=== PATIENT | male | born 1930 | race Caucasian/White ===

== ENCOUNTER 2016-02-17 12:09 | Emergency (ER) | payer MEDICARE ==
[2016-02-17 12:46] LABS: #Basophils 0.1 thou/uL (0.0-0.2); #Eosinphils 0.4 thou/uL (0.0-0.7); #Lymphocytes 1.7 thou/uL (1.20-3.40); #Monocytes 0.8 thou/uL (0.11-0.59); #Neutrophils 6.6 thou/uL (1.40-6.50); %Basophils 0.6 % (0.0-1.0); %Monocytes 8.4 % (0.0-10.0); Hematocrit 37.4 % (42.0-52.0); Mean Platelet Volume 5.6 fL (7.4-10.4); Red Blood Cell (RBC) Count 4.25 mill/uL (4.70-6.10); White Blood Cell (WBC) Count 9.5 thou/uL (4.8-10.8)
[2016-02-17 12:59] LABS: ALT (SGPT) 39 U/L (0-55); AST (SGOT) 82 U/L (5-34); Alkaline Phosphatase 90 U/L (40-150); Anion Gap 11 mmol/L (10-20); BUN (Urea Nitrogen) 31 mg/dL (8.4-25.7); Bilirubin, Total 1.2 mg/dL (0.2-1.2); Calc. Creatinine Clearance 0 mL/min (70-130); Calcium 8.9 mg/dL (7.8-10.44); Carbon Dioxide 24 mmol/L (23-31); Chloride 107 mmol/L (98-107); Estimated GFR-MDRD 36; Globulin 3.1 g/dL (2.4-3.5); Lipase 12 U/L (8-78); Protein, Total 6.9 g/dL (5.8-8.1)
[2016-02-17 13:00] LABS: Troponin I 0.015 ng/mL (< 0.028)
[2016-02-17 13:02] LABS: Bilirubin Negative (Negative); Blood, Urine Negative (Negative); Glucose, Urine (Dipstick) Negative (Negative); Ketone, Urine Negative (Negative); Nitrite Negative (Negative); Protein, Urine (Dipstick) Negative (Neg-Trace); Urobilinogen 0.2 mg/dL (0.2-1.0)
[2016-02-17 13:11] LABS: Bacteria/HPF Rare-Few HPF (None Seen); RBC/HPF None Seen HPF (0-3); Squamous Epithelial 0-3 HPF (0-3); WBC/HPF 0-3 HPF (0-3)
[2016-02-17] MEDS ORDERED: Fentanyl 100 MCG/2 ML VIAL ONE (13:20)
--- NOTE | 2016-02-17 13:25 | RAD ---
PORTABLE CHEST: Date: 02-17-16 An AP portable film at 1236 is compared with a 11-01-14 study. FINDINGS: The heart is mildly enlarged, a little more so that it was in 2015. There are no congestive finding s, large pleural effusions or focal pulmonary infiltrates today. The trachea is midline. IMPRESSION: Mild cardiomegaly. POS: HOME
[2016-02-17] MEDS ORDERED: Ondansetron HCl/PF 4 MG/2 ML Vial ONE (14:07)
--- NOTE | 2016-02-17 14:07 | CT ---
CT ABDOMEN AND PELVIS WITHOUT CONTRAST: Date: 02-17-16 The exam was done without contrast due to his low GFR, high creatinine and history of prior nephrect evelio. Axial slices were acquired and then coronal reconstructions were done. FINDINGS: The lung bases are clear. A moderate sized hiatal hernia is present. The liver, spleen, pancreas, and adrenal glands show no acute findings within the limitations of a noncontrast study. There is d iffuse fatty replacement of the pancreas. The gallbladder is much larger today than it was on a [address], measuring over 8 cm in length. There are calcifications either in it or along its wall. Ultr asound follow up would be helpful. The aorta is calcified but shows no aneurysm. There has been a prior right nephrectomy. The remaining left kidney has several lucencies within it . One is in the upper pole measuring 2.3 cm in size and one is in the middle third measuring 2.6 cm . A peripheral cystic appearing area is seen in the lower pole measuring nearly 2.0 cm in size. Th e latter two findings have increased in size since the prior scan. While these are most likely just cysts, however, given the history of urinary tract cancer, it would be prudent to have the patient get an elective ultrasound of this kidney to be sure these are cystic and not solid findings. He [place] s an extrarenal pelvis in this kidney but there was no sign of ureteral calculi or dilatation. The bowel is nondistended and no inflammatory changes were seen around bowel. There is no sign of f ree air free fluid. Diverticulosis is present without signs of diverticulitis. CT of the pelvis shows no pelvic masses, fluid collections, or inflammatory issues. The wall of the distal rectum is perhaps slightly thicker than usual, but concentrically so. A fat filled left ing uinal hernia was noted. IMPRESSION: 1. Enlargement of the gallbladder with calcifications either within it or along its wall. Follow u p ultrasound recommended. 2. Lucencies of the left kidney, at least two of which have increased in size since 2007. Statisti alvin, most likely cysts, but in view of the clinical history an elective ultrasound to be sure thes e are cystic and not solid is strongly recommended. 3. Hiatal hernia. 4. Diverticulosis without findings of diverticulitis. 5. Fat filled left inguinal hernia. POS: HOME
--- NOTE | 2016-02-17 14:54 | ERRECORD ---
[facility] EMERGENCY RECORD HPI ABDOMINAL PAIN (12:32 DHAM) CHIEF COMPLAINT: Patient presents for evaluation of abdominal pain. HISTORIAN: History provided by patient, "I ate a biscuit and gravy this morning at about 8 o'clock and my stomach has been hurting since then." this was about 4 hours ago. Denies n/v or sob. Was here with similar complaints 2 weeks ago with normal plain films and was given some simethicone. He seemed to resolve until this morning. He thinks that he is constipated but he has been having small BMs once a day. LOCATION MALE: Symptoms are localized, most severe periumbilical. QUALITY: Pain is dull in nature, described as cramping. SEVERITY: Current severity of pain rated as 9/10. TIME COURSE: Sudden onset of symptoms, 4 hours ago. ASSOCIATED WITH: No associated recent antibiotic use, No associated bright red blood per rectum, No associated chills, Associated with constipation, No associated diarrhea, No associated fever, No associated flank pain, No associated genital discharge, No associated groin pain, No associated hematemesis, No associated hematospermia, No associated hematuria, No associated impotence, No associated loss of appetite, No associated melena, No associated nausea, No associated night sweats, No associated painful ejaculation, No associated testicular pain, No associated recent travel, No associated inability to tolerate oral intake, No associated urinary tract infection signs or symptoms, No associated vomiting. RELIEVED BY: Patient's condition relieved by flatus usually helps this pain. He has had similar episodes 3-4 times prior to 2 weeks ago over the last "couple of years" and it usually gets better on it's own. EXACERBATED BY: Patient's condition exacerbated by nothing. RISK FACTORS MALE: Abdominal aortic aneurysm risk factors, include age over 40 years, Coronary artery disease risk factors, include known coronary artery disease, include diabetes, include hypertension. ROS (12:59 DHAM) CONSTITUTIONAL: Historian denies chills, denies fever, denies night sweats. ENT: Historian denies rhinorrhea, denies sore throat. CARDIOVASCULAR: Historian denies chest pain, no radiation, Historian denies dyspnea on exertion, denies edema, denies syncope, denies palpitations. RESPIRATORY: Historian denies cough, denies shortness of breath, denies sputum, denies wheezing. GI: Historian reports abdominal pain, reports constipation, denies diarrhea, denies hematemesis, denies melena, denies nausea, denies vomiting. GENITOURINARY MALE: Historian denies dysuria, denies hematuria, denies impotence, denies urinary frequency, denies urinary retention. MUSCULOSKELETAL: Historian denies arthralgias, denies back pain, &a-1R&a+25V*p+0X*q6356R*c202B*c15G*c2P*p-0X&a-25V&a+1R Name: Trent Vazquez : 1930 M86 MedRec: [id number] AcctNum: [id number] Prepared: Mariel Feb 17, 2016 20:02 by Interface Page 1 of 5 pMD [facility] EMERGENCY RECORD denies deformity, denies fall, denies injury, denies neck pain. SKIN: Historian denies rash, denies skin changes, denies skin lesions. NEUROLOGIC: Historian denies confusion, denies dizziness, denies focal weakness, denies gait changes, denies headache, denies mental status changes, denies paresthesias, denies sensory changes, denies speech changes. HEMO/LYMPHATIC: Historian denies abnormal blood clotting, denies easy bruising. ALLERGIC/IMMUNOLOGIC: Historian denies frequent infections, denies hives. PSYCHIATRIC: Historian denies alcohol abuse. PAST MEDICAL HISTORY MEDICAL HISTORY: Past medical history includes coronary artery disease, Flu vaccine up to date, Pneumococcal vaccine up to date, hypertension, which has been treated/compliant, Atrial fib, HTN, history of malignancy, primary site kidney, bladder CA. (12:21 ASAH) MALE SURGICAL HISTORY: Surgical history of CAD, right nephrectomy d/t cancer(2008); right hand pinky and ring finger amputations. Triple CABG with valve replacement,. (12:21 ASAH) left knee replacement. (12:30 LGIB) PSYCHIATRIC HISTORY: DEPRESSION SINCE PASSING IN 2013. (12:21 ASAH) SOCIAL HISTORY: DENIES ETOH, TOBACCO OR DRUG USE. REVIEWED 02/07/16. (12:21 ASAH) NOTES: I have reviewed the nursing documentation regarding PMHX, social hx, family hx, and surgical history as well as vitals and triage notes and agree. (12:31 DHAM) KNOWN ALLERGIES No Known Drug Allergies CURRENT MEDICATIONS (12:32 LGIB) furosemide: TABLET : Strength - 20 mg : ORAL Patient Dose: 1 tab(s) Oral 2 times a day. atorvastatin: TABLET : Strength - 40 mg : ORAL Patient Dose: 1/2 tab(s) Oral once a day (at bedtime). finasteride: TABLET : Strength - 5 mg : ORAL Patient Dose: 1 tab(s) Oral once a day (in the morning). carvedilol: TABLET : Strength - 6.25 mg : ORAL Patient Dose: 1 tab(s) Oral 2 times a day. glipiZIDE: TABLET, EXTENDED RELEASE 24 HR : Strength - 2.5 mg : ORAL Patient Dose: 1 tab(s) Oral once a day (in the morning). &a-1R&a+25V*p+0X*p4610V*c202B*c15G*c2P*p-0X&a-25V&a+1R Name: Trent Vazquez : 1930 M86 MedRec: [id number] AcctNum: [id number] Prepared: Mariel Feb 17, 2016 20:02 by Interface Page 2 of 5 pMD [facility] EMERGENCY RECORD alfuzosin: TABLET, EXTENDED RELEASE 24 HR : Strength - 10 mg : ORAL Patient Dose: 1 tab(s) Oral once a day (at bedtime). pantoprazole: TABLET, DELAYED RELEASE (ENTERIC COATED) : Strength - 40 mg : ORAL Patient Dose: 1 null Oral once a day (in the morning). amLODIPine: TABLET : Strength - 5 mg : ORAL Patient Dose: 1 tab(s) Oral once a day. VITAL SIGNS VITAL SIGNS: BP: 185/87, Pulse: 59, Resp: 16, Temp: 97.8 (Tympanic), Pain: 9, O2 sat: 98, Time: 02/17/2016 12:16. (12:16 ASAH) BP: 176/95, Pulse: 75, Resp: 17 (Non-Labored), O2 sat: 96 on Room Air, Time: 02/17/2016 13:21. (13:21 LGIB) Pain: 1, Time: 02/17/2016 13:39. (13:39 LGIB) BP: 140/70, Pulse: 86, Resp: 18 (Non-Labored), O2 sat: 98 on Room Air, Time: 02/17/2016 14:01. (14:01 LGIB) PHYSICAL EXAM CONSTITUTIONAL: Vital signs reviewed, Patient afebrile, Pulse mildly bradycardic, Blood pressure normal, Respiratory rate normal, Patient appears non toxic, Patient in mild pain , Patient alert and oriented to person, place and time. (13:00 DHAM) HEAD: Head exam normal, Head exam included findings of head atraumatic. (13:00 DHAM) EYES: Eye exam included findings of eyelids normal to inspection, Pupils equally round and reactive to light, Extraocular muscles intact, Conjunctiva normal. (13:00 DHAM) ENT: Ear exam normal, external ear normal, tympanic membranes normal, no drainage, Nose exam normal, no nasal deformity, no nasal congestion or rhinorrhea, Pharynx exam normal, Uvula exam normal, Tonsil exam normal, teeth normal. (13:00 DHAM) NECK: Neck exam normal, Neck exam included findings of normal range of motion, Thyroid normal, no jugular venous distention, no cervical adenopathy. (13:00 DHAM) RESPIRATORY CHEST: Breath sounds clear, No wheezing, No rales, No rhonchi. (13:00 DHAM) CARDIOVASCULAR: Cardiovascular exam included findings of heart rate regular rate and rhythm, Heart sounds normal, Point of maximal impulse normal. well healed sternotomy scar. (13:00 DHAM) ABDOMEN MALE: Normal rectal exam, no hemorrhoids, no fissure, normal prostate, no occult blood, control positive, rectal tone normal, soft stool in vault, light brown, Abdominal exam included findings of abdomen with mild periumbilical tenderness, Bowel sounds normal, Liver normal, Spleen normal, no distension, no mass or pulsatile masses, no peritoneal signs ie., no guarding, rebound or referred tenderness. (13:00 DHAM) GENITOURINARY MALE: Genitourinary exam included findings of penis &a-1R&a+25V*p+0X*x6290S*c202B*c15G*c2P*p-0X&a-25V&a+1R Name: Trent Vazquez : 1930 M86 MedRec: [id number] AcctNum: [id number] Prepared: TueFeb 17, 2016 20:02 by Interface Page 3 of 5 pMD [facility] EMERGENCY RECORD normal, Testicles normal. (13:03 DHAM) UPPER EXTREMITY: Upper extremity exam included findings of inspection normal, Range of motion normal, Motor strength normal, Sensation intact, Brachial pulse normal, Radial pulse normal, previous amputations of right hand digits 4 and 5 from accident yrs ago. (13:00 DHAM) LOWER EXTREMITY: Lower extremity exam included findings of inspection normal, Range of motion normal, Motor strength normal, Sensation intact, no edema, no calf tenderness, no palpable cords, upper and lower pulses feel symmetrical bilat. (13:00 DHAM) NEURO: Palisade coma scale 15, Neuro exam findings include patient oriented to person, place and time, Speech normal, Gait abnormal, walks bent forward with pain in the abdomen, Memory normal, Cranial nerves intact. (13:00 DHAM) SKIN: Skin exam included findings of skin warm, dry, and normal in color, no rash. (13:00 DHAM) PSYCHIATRIC: Psychiatric exam included findings of patient oriented to person place and time, Normal affect, Judgment normal, Insight normal. (13:00 DHAM) EKG INTERPRETATION (13:46 DHAM) 12 LEAD EKG INTERPRETATION: 12 lead EKG shows, sinus bradycardia, Rate (beats per minute): 55, with no ectopics, Conduction normal, ST segments normal, T waves normal, Tatum normal. MEDICATION ADMINISTRATION SUMMARY Drug Name: ondansetron HCl intravenous, Dose Ordered: 4 mg, Route: IV Push, Status: Given, Time: 14:10 02/17/2016, Drug Name: fentaNYL (PF) injection, Dose Ordered: 25 mcg, Route: IV Push, Status: Given, Time: 13:24 02/17/2016, Drug Name: *Levsin/SL, Dose Ordered: 1 tab(s), Route: Sublingual, Status: Given, Time: 12:54 02/17/2016, *Additional information available in notes, Detailed record available in Medication Service section. DOCTOR NOTES RE-EVALUATION: The patient's condition has improved, Pt feels much better after the Zofran. I suspect standing after the low dose fentanyl may have caused the nausea. I have discussed the lab results and need for further studies discussed with his daughter on the phone by the pt's request. US not available tomorrow. They are here today but with recent food and fentanyl the study will not be very good I suspect. (14:21 DHAM) TEXT: Pt had remarkable improvement with fentanyl 25mcg iv. 45 min later, he was laying on the right side and c/o pain of the right hip which is not unusual and wanted to get up to move around. He became nauseated and was given Zofran IV. His granddaughter Meir was here while I discussed his ct results and needing US of both the &a-1R&a+25V*p+0X*o4765W*c202B*c15G*c2P*p-0X&a-25V&a+1R Name: Trent Vazquez : 1930 M86 MedRec: [id number] AcctNum: [id number] Prepared: TueFeb 17, 2016 20:02 by Interface Page 4 of 5 pMD [facility] EMERGENCY RECORD kidney cysts that have enlarged and the enlarged GB with stones. We did discuss the s/s of cholycystitis and need for recheck for any changes or concerns. (14:07 DHAM) PROBLEM LIST No recorded problems DIAGNOSIS (14:25 DHAM) FINAL: PRIMARY: Cholelithiasis, ADDITIONAL: renal cysts. PRESCRIPTION No recorded prescriptions DISPOSITION PATIENT: Disposition Type: Discharge, Disposition: *Discharge Home. (14:25 DHAM) Patient left the department. (14:48 LGIB) Low: ASA=MEGAN Menjivar, May [facility]=MD Mumtaz, Sanya LGIB=MEGAN Bella, Tonja &a-1R&a+25V*p+0X*y3332R*c202B*c15G*c2P*p-0X&a-25V&a+1R Name: Trent Vazquez : 1930 M86 MedRec: [id number] AcctNum: [id number] Prepared: TueFeb 17, 2016 20:02 by Interface Page 5 of 5 pMD MTDD
--- NOTE | 2016-02-17 14:58 | PICIS ---
[facility] EMERGENCY RECORD TRIAGE (TueFeb 17, 2016 12:18 ASAH) PATIENT: NAME: Trent Vazquez, AGE: 86, GENDER: male, : [id number], TIME OF GREET: TueFeb 17, 2016 12:09, PREFERRED LANGUAGE: Swedish, ETHNICITY: Not or , ECODE BILLING MAP: [facility], SSN: [id number], Zip Code: [address], KG WEIGHT: 83.91, PHONE: , , , PERSON ID: [id number], PAYMENT: [employer], PCP: MD Ernanedz Kyle. (TueFeb 17, 2016 12:18 ASAH) COMPLAINT: abdominal pain/constipation. (TueFeb 17, 2016 12:18 ASAH) ADMISSION: URGENCY: 3 Urgent, ADMISSION SOURCE: Home, TRANSPORT: CAR, BED: ER -02. (TueFeb 17, 2016 12:18 ASAH) PAIN: Patient complains of pain described as, aching, Location abdomin, Pain is constant, No aggravating factors, No relieving factors. (12:21 ASAH) IMMUNIZATIONS: Flu vaccine not up to date, Tetanus not up to date, Pneumococcal vaccine not up to date. (12:21 ASAH) SIRS SCORING: Heart Rate 55-109 (0), Temp range 96.8-101.1 (0), respiratory rate 12-24 (0), Mental status altered: yes (1), Infection or Suspected Infection: No. (12:21 ASAH) TRIAGE SCREENING: Patient denies suicidal ideation, Patient denies presence of domestic violence. (12:21 ASAH) PROVIDERS: TRIAGE NURSE: Dee Menjivar RN. (TueFeb 17, 2016 12:18 ASAH) VITAL SIGNS: BP 185/87, Pulse 59, Resp 16, Temp 97.8, (Tympanic), Pain 9, O2 Sat 98, Time 02/17/2016 12:16. (12:16 ASAH) PREVIOUS VISIT ALLERGIES: No Known Drug Allergies. (TueFeb 17, 2016 12:18 ASAH) No Known Drug Allergies. (12:21 ASAH) KNOWN ALLERGIES No Known Drug Allergies CURRENT MEDICATIONS (12:32 LGIB) furosemide: TABLET : Strength - 20 mg : ORAL Patient Dose: 1 tab(s) Oral 2 times a day. atorvastatin: TABLET : Strength - 40 mg : ORAL Patient Dose: 1/2 tab(s) Oral once a day (at bedtime). finasteride: TABLET : Strength - 5 mg : ORAL Patient Dose: 1 tab(s) Oral once a day (in the morning). carvedilol: TABLET : Strength - 6.25 mg : ORAL Patient Dose: 1 tab(s) Oral 2 times a day. glipiZIDE: TABLET, EXTENDED RELEASE 24 HR : Strength - 2.5 mg : ORAL &a-1R&a+25V*p+0X*t8212E*c202B*c15G*c2P*p-0X&a-25V&a+1R Name: Trent Vazquez : 1930 M86 MedRec: [id number] AcctNum: [id number] Prepared: Mariel Feb 17, 2016 20:02 by Interface Page 1 of 12 pMD [facility] EMERGENCY RECORD Patient Dose: 1 tab(s) Oral once a day (in the morning). alfuzosin: TABLET, EXTENDED RELEASE 24 HR : Strength - 10 mg : ORAL Patient Dose: 1 tab(s) Oral once a day (at bedtime). pantoprazole: TABLET, DELAYED RELEASE (ENTERIC COATED) : Strength - 40 mg : ORAL Patient Dose: 1 null Oral once a day (in the morning). amLODIPine: TABLET : Strength - 5 mg : ORAL Patient Dose: 1 tab(s) Oral once a day. VITAL SIGNS VITAL SIGNS: BP: 185/87, Pulse: 59, Resp: 16, Temp: 97.8 (Tympanic), Pain: 9, O2 sat: 98, Time: 02/17/2016 12:16. (12:16 ASAH) BP: 176/95, Pulse: 75, Resp: 17 (Non-Labored), O2 sat: 96 on Room Air, Time: 02/17/2016 13:21. (13:21 LGIB) Pain: 1, Time: 02/17/2016 13:39. (13:39 LGIB) BP: 140/70, Pulse: 86, Resp: 18 (Non-Labored), O2 sat: 98 on Room Air, Time: 02/17/2016 14:01. (14:01 LGIB) NURSING ASSESSMENT: ABDOMEN (12:25 LGIB) CONSTITUTIONAL: Complex assessment performed, Patient arrives ambulatory, Gait steady, History obtained from patient, Patient appears, restless, Patient cooperative, Patient alert, Oriented to person, place and time, Skin warm, Skin dry, Skin normal in color, Mucous membranes pink, Mucous membranes moist, Patient is well-groomed, Patient complains of abd pain, pt with abd pain since early this morning after eating biscuit and gravy. pt believes he is constipated but states he has been having small BMs once a day. NAD, RR even and unlabored. PAIN: cramping pain, diffusely, Onset of pain 02/17/2016, on a scale 0-10 patient rates pain as 9, Nothing has been tried to alleviate the pain. ABDOMEN: Abdomen assessment findings include abdomen symmetrical, Abdomen soft, non-tender, Bowel sound normal, no associated nausea, no associated vomiting, no associated diarrhea. SAFETY: Side rails up, Cart/Stretcher in lowest position, Call light within reach, Hospital ID band on. NURSING PROCEDURE: BEDSIDE RADIOLOGY (12:42 LGIB) BEDSIDE RADIOLOGY: Portable chest x-ray performed. NURSING PROCEDURE: ENAMEL DIPPER (12:20 LGIB) ENAMEL DIPPER: Patient placed on bus monitor, Patient placed on non-invasive blood pressure monitor, Patient placed on continuous pulse oximetry. NURSING PROCEDURE: DISCHARGE NOTE (14:48 LGIB) DISCHARGE: Patient discharged to home, in a wheelchair, family driving, accompanied by other family member, Summary of Care &a-1R&a+25V*p+0X*b3934Y*c202B*c15G*c2P*p-0X&a-25V&a+1R Name: Trent Vazquez : 1930 M86 MedRec: [id number] AcctNum: [id number] Prepared: Mariel Feb 17, 2016 20:02 by Interface Page 2 of 12 pMD [facility] EMERGENCY RECORD printed/ provided, Patient requested and was provided an electronic copy of Discharge Instructions, Discharge instructions given to patient, Discharge instructions given to grandaughter and daughter, Simple or moderate discharge teaching performed, Prescriptions given and instructions on side effects given, Above person(s) verbalized understanding of discharge instructions and follow-up care, Patient treated and evaluated by physician. BELONGINGS: Belongings and valuables with patient at time of discharge include:, Belongings remain with patient, Valuables remain with patient. NURSING PROCEDURE: EKG CHART (12:34 LGIB) EK lead EKG performed on the left chest, done by MEGAN Uribe. FOLLOW-UP: After procedure, EKG for interpretation given to Dr. Pandya. NURSING PROCEDURE: IV IV SITE 1: IV therapy indicated for medication administration, IV established, to the left antecubital, using a 20 gauge catheter, in one attempt, Saline lock established, Flushed with normal saline (mls): 10, Labs drawn at time of placement, labeled in the presence of the patient and sent to lab, Notes: started by MEGAN Price. (12:35 LGIB) FOLLOW-UP SITE 1: After procedure, no drainage at IV site, After procedure, no swelling at IV site, After procedure, no redness at IV site, IV discontinued, due to patient being discharged, catheter intact. (14:40 LGIB) NURSING PROCEDURE: NURSE NOTES NURSES NOTES: Patient examined by physician. (12:21 LGIB) Patient states decreased pain. (13:35 LGIB) NURSING PROCEDURE: TRANSPORT TO TESTS TRANSPORT TO TESTS: Transport indicated to facilitate diagnosis, Patient transported to CT scan, via cart, Accompanied by x-ray turbine technician. (13:09 LGIB) FOLLOW-UP: After procedure, patient returned to emergency department. (13:17 LGIB) NURSING PROCEDURE: URINE COLLECTION (12:50 LGIB) URINE COLLECTION MALE: Urine collected by void, output amount (mL) 250, urine yellow in color, and clear, Specimen labeled in the presence of the patient and sent to lab. ORDER DETAILS Order Name: ENAMEL DIPPER ED, Status: Done, Time: 12:41 02/17/2016, User: LGIB, - Ordered for: MD Pandya Darren, - Entered by: MD Pandya Darren - Tue Feb 17, 2016 12:31, &a-1R&a+25V*p+0X*c2640M*c202B*c15G*c2P*p-0X&a-25V&a+1R Name: Trent Vazquez: 1930 M86 MedRec: [id number] AcctNum: [id number] Prepared: TueFeb 17, 2016 20:02 by Interface Page 3 of 12 D [facility] EMERGENCY RECORD - Quantity: 1, Order Name: Cardiac Profile w/CKMB & Troponin - I, Status: Active, Time: 12:31 02/17/2016, User: OLVIN, - Ordered for: MD Pandya Darren, - Entered by: MD Pandya Darren - Mariel Feb 17, 2016 12:31, - Quantity: 1, Order Name: CBC with Differential, Status: Active, Time: 12:31 02/17/2016, User: OLVIN, - Ordered for: MD Pandya Darren, - Entered by: MD Pandya Darren - Mariel Feb 17, 2016 12:31, - Quantity: 1, Order Name: Comprehensive Metabolic Panel, Status: Active, Time: 12:31 02/17/2016, User: OLVIN, - Ordered for: MD Pandya Darren, - Entered by: MD Pandya Darren - Mariel Feb 17, 2016 12:31, - Quantity: 1, Order Name: CT Abdomen Pelvis W Con, Status: Active, Time: 12:31 02/17/2016, User: OLVIN, - Ordered for: MD Pandya Darren, - Entered by: MD Pandya Darren - Mariel Feb 17, 2016 12:31, - Quantity: 1, Order Name: EKG 12 Lead in Emergency Room, Status: Active, Time: 12:31 02/17/2016, User: OLVIN, - Ordered for: MD Pandya Darren, - Entered by: MD Pandya Darren - Mariel Feb 17, 2016 12:31, - Quantity: 1, Order Name: ERRT Pulse Oximeter ER, Status: Active, Time: 12:31 02/17/2016, User: OLVIN, - Ordered for: MD Pandya Darren, - Entered by: MD Pandya Darren - Tue Feb 17, 2016 12:31, - Quantity: 1, Order Name: Lipase, Status: Active, Time: 12:31 02/17/2016, User: OLVIN, - Ordered for: MD Pandya Darren, - Entered by: MD Pandya Darren - Tue Feb 17, 2016 12:31, - Quantity: 1, Order Name: Occult Blood, Stool DIAGNOSTIC(Guia), Status: Active, Time: 12:48 02/17/2016, User: OLVIN, - Ordered for: MD Pandya Darren, - Entered by: MD Pandya Darren - Tue Feb 17, 2016 12:48, - Quantity: 1, Order Name: SALINE LOCK, Status: Done, Time: 12:41 02/17/2016, User: JOAQUIN, - Ordered for: MD Pandya Darren, - Entered by: MD Pandya Darren - Tue Feb 17, 2016 12:31, - Quantity: 1, Order Name: Urinalysis with Microscopic, Status: Active, Time: 12:31 02/17/2016, User: OLVIN, - Ordered for: MD Pandya Darren, - Entered by: MD Pandya Darren - Tue Feb 17, 2016 12:31, &a-1R&a+25V*p+0X*m9551C*c202B*c15G*c2P*p-0X&a-25V&a+1R Name: Trent Vazquez : 1930 M86 MedRec: [id number] AcctNum: [id number] Prepared: TueFeb 17, 2016 20:02 by Interface Page 4 of 12 D [facility] EMERGENCY RECORD - Quantity: 1, Order Name: XR Chest 1 View Portable, Status: Active, Time: 12:31 02/17/2016, User: OLVIN, - Ordered for: MD Pandya Darren, - Entered by: MD Pandya Darren - Tue Feb 17, 2016 12:31, - Quantity: 1. MEDICATION ADMINISTRATION SUMMARY Drug Name: ondansetron HCl intravenous, Dose Ordered: 4 mg, Route: IV Push, Status: Given, Time: 14:10 02/17/2016, Drug Name: fentaNYL (PF) injection, Dose Ordered: 25 mcg, Route: IV Push, Status: Given, Time: 13:24 02/17/2016, Drug Name: *Levsin/SL, Dose Ordered: 1 tab(s), Route: Sublingual, Status: Given, Time: 12:54 02/17/2016, *Additional information available in notes, Detailed record available in Medication Service section. MEDICATION SERVICE fentaNYL (PF) injection: Order: fentaNYL (PF) injection (fentanyl citrate/preservative free) - Dose: 25 mcg : IV Push Schedule: Now Ordered by: Sanya Pandya MD Entered by: Sanya Pandya MD TueFeb 17, 2016 13:18 , Acknowledged by: Tonja Bella RN TueFeb 17, 2016 13:19 Documented as given by: Tonja Bella RN TueFeb 17, 2016 13:24 Patient, Medication, Dose, Route and Time verified prior to administration. IV SITE #1 IVP, initial medication, Slowly, Awake and alert- acceptable, Catheter placement confirmed via flush prior to administration, IV site without signs or symptoms of infiltration during medication administration, No swelling during administration, No drainage during administration, IV flushed after administration, Correct patient, time, route, dose and medication confirmed prior to administration, Patient advised of actions and side-effects prior to administration, Allergies confirmed and medications reviewed prior to administration, Patient in position of comfort, Side rails up, Cart in lowest position. : Follow Up : Decreased pain, _IV SITE #1:_. (13:34 LGIB) Levsin/SL: Order: Levsin/SL (hyoscyamine sulfate) - Dose: 1 tab(s) : Sublingual Schedule: Now Notes: 0.125mg now Ordered by: Sanya Pandya MD Entered by: Sanya Pandya MD TueFeb 17, 2016 12:50 , Acknowledged by: Dee Menjivar RN TueFeb 17, 2016 12:52 Documented as given by: Dee Menjivar RN TueFeb 17, 2016 12:54 Patient, Medication, Dose, Route and Time verified prior to &a-1R&a+25V*p+0X*g3435T*c202B*c15G*c2P*p-0X&a-25V&a+1R Name: Trent Vazquez : 1930 M86 MedRec: [id number] AcctNum: [id number] Prepared: TueFeb 17, 2016 20:02 by Interface Page 5 of 12 pMD [facility] EMERGENCY RECORD administration. Amount given: .125mg, Amount wasted: 0, Site: Medication administered S.L., Correct patient, time, route, dose and medication confirmed prior to administration, Patient advised of actions and side-effects prior to administration, Allergies confirmed and medications reviewed prior to administration, Patient in position of comfort, Side rails up, Cart in lowest position. ondansetron HCl intravenous: Order: ondansetron HCl intravenous (ondansetron HCl) - Dose: 4 mg : IV Push Schedule: Now Ordered by: Sanya Pandya MD Entered by: Sanya Pandya MD justice Feb 17, 2016 14:06 , Acknowledged by: Dee Menjivar RN justice Feb 17, 2016 14:10 Documented as given by: Dee Menjivar RN justice Feb 17, 2016 14:10 Patient, Medication, Dose, Route and Time verified prior to administration. Amount given: 4mg, Amount wasted: 4mg, IV SITE #1 IVP, initial medication, Slowly, Catheter placement confirmed via flush prior to administration, IV site without signs or symptoms of infiltration during medication administration, No swelling during administration, No drainage during administration, IV flushed after administration, Correct patient, time, route, dose and medication confirmed prior to administration, Patient advised of actions and side-effects prior to administration, Allergies confirmed and medications reviewed prior to administration, Patient in position of comfort, Side rails up, Cart in lowest position, Family at bedside. HPI ABDOMINAL PAIN (12:32 DHAM) CHIEF COMPLAINT: Patient presents for evaluation of abdominal pain. HISTORIAN: History provided by patient, "I ate a biscuit and gravy this morning at about 8 o'clock and my stomach has been hurting since then." this was about 4 hours ago. Denies n/v or sob. Was here with similar complaints 2 weeks ago with normal plain films and was given some simethicone. He seemed to resolve until this morning. He thinks that he is constipated but he has been having small BMs once a day. LOCATION MALE: Symptoms are localized, most severe periumbilical. QUALITY: Pain is dull in nature, described as cramping. SEVERITY: Current severity of pain rated as 9/10. TIME COURSE: Sudden onset of symptoms, 4 hours ago. ASSOCIATED WITH: No associated recent antibiotic use, No associated bright red blood per rectum, No associated chills, Associated with constipation, No associated diarrhea, No associated fever, No associated flank pain, No associated genital discharge, No associated groin pain, No associated hematemesis, No associated hematospermia, No associated hematuria, No associated impotence, No associated loss of appetite, No associated melena, No associated nausea, No associated night sweats, No associated painful ejaculation, No associated testicular pain, No associated recent &a-1R&a+25V*p+0X*u0018P*c202B*c15G*c2P*p-0X&a-25V&a+1R Name: Trent Vazquez : 1930 M86 MedRec: [id number] AcctNum: [id number] Prepared: Mariel Feb 17, 2016 20:02 by Interface Page 6 of 12 pMD [facility] EMERGENCY RECORD travel, No associated inability to tolerate oral intake, No associated urinary tract infection signs or symptoms, No associated vomiting. RELIEVED BY: Patient's condition relieved by flatus usually helps this pain. He has had similar episodes 3-4 times prior to 2 weeks ago over the last "couple of years" and it usually gets better on it's own. EXACERBATED BY: Patient's condition exacerbated by nothing. RISK FACTORS MALE: Abdominal aortic aneurysm risk factors, include age over 40 years, Coronary artery disease risk factors, include known coronary artery disease, include diabetes, include hypertension. ROS (12:59 DHAM) CONSTITUTIONAL: Historian denies chills, denies fever, denies night sweats. ENT: Historian denies rhinorrhea, denies sore throat. CARDIOVASCULAR: Historian denies chest pain, no radiation, Historian denies dyspnea on exertion, denies edema, denies syncope, denies palpitations. RESPIRATORY: Historian denies cough, denies shortness of breath, denies sputum, denies wheezing. GI: Historian reports abdominal pain, reports constipation, denies diarrhea, denies hematemesis, denies melena, denies nausea, denies vomiting. GENITOURINARY MALE: Historian denies dysuria, denies hematuria, denies impotence, denies urinary frequency, denies urinary retention. MUSCULOSKELETAL: Historian denies arthralgias, denies back pain, denies deformity, denies fall, denies injury, denies neck pain. SKIN: Historian denies rash, denies skin changes, denies skin lesions. NEUROLOGIC: Historian denies confusion, denies dizziness, denies focal weakness, denies gait changes, denies headache, denies mental status changes, denies paresthesias, denies sensory changes, denies speech changes. HEMO/LYMPHATIC: Historian denies abnormal blood clotting, denies easy bruising. ALLERGIC/IMMUNOLOGIC: Historian denies frequent infections, denies hives. PSYCHIATRIC: Historian denies alcohol abuse. PAST MEDICAL HISTORY MEDICAL HISTORY: Past medical history includes coronary artery disease, Flu vaccine up to date, Pneumococcal vaccine up to date, hypertension, which has been treated/compliant, Atrial fib, HTN, history of malignancy, primary site kidney, bladder CA. 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 Triple CABG with valve replacement,. (12:21 ASA) left knee replacement. (12:30 LGIB) &a-1R&a+25V*p+0X*t1712S*c202B*c15G*c2P*p-0X&a-25V&a+1R Name: Trent Vazquez : 1930 M86 MedRec: [id number] AcctNum: [id number] Prepared: Mariel Feb 17, 2016 20:02 by Interface Page 7 of 12 D [facility] EMERGENCY RECORD PSYCHIATRIC HISTORY: DEPRESSION SINCE PASSING IN 2013. (12:21 ASA) SOCIAL HISTORY: DENIES ETOH, TOBACCO OR DRUG USE. REVIEWED 02/07/16. (12:21 ASA) NOTES: I have reviewed the nursing documentation regarding PMHX, social hx, family hx, and surgical history as well as vitals and triage notes and agree. (12:31 DHAM) PHYSICAL EXAM CONSTITUTIONAL: Vital signs reviewed, Patient afebrile, Pulse mildly bradycardic, Blood pressure normal, Respiratory rate normal, Patient appears non toxic, Patient in mild pain , Patient alert and oriented to person, place and time. (13:00 DHAM) HEAD: Head exam normal, Head exam included findings of head atraumatic. (13:00 DHAM) EYES: Eye exam included findings of eyelids normal to inspection, Pupils equally round and reactive to light, Extraocular muscles intact, Conjunctiva normal. (13:00 DHAM) ENT: Ear exam normal, external ear normal, tympanic membranes normal, no drainage, Nose exam normal, no nasal deformity, no nasal congestion or rhinorrhea, Pharynx exam normal, Uvula exam normal, Tonsil exam normal, teeth normal. (13:00 DHAM) NECK: Neck exam normal, Neck exam included findings of normal range of motion, Thyroid normal, no jugular venous distention, no cervical adenopathy. (13:00 DHAM) RESPIRATORY CHEST: Breath sounds clear, No wheezing, No rales, No rhonchi. (13:00 DHAM) CARDIOVASCULAR: Cardiovascular exam included findings of heart rate regular rate and rhythm, Heart sounds normal, Point of maximal impulse normal. well healed sternotomy scar. (13:00 DHAM) ABDOMEN MALE: Normal rectal exam, no hemorrhoids, no fissure, normal prostate, no occult blood, control positive, rectal tone normal, soft stool in vault, light brown, Abdominal exam included findings of abdomen with mild periumbilical tenderness, Bowel sounds normal, Liver normal, Spleen normal, no distension, no mass or pulsatile masses, no peritoneal signs ie., no guarding, rebound or referred tenderness. (13:00 DHAM) GENITOURINARY MALE: Genitourinary exam included findings of penis normal, Testicles normal. (13:03 DHAM) UPPER EXTREMITY: Upper extremity exam included findings of inspection normal, Range of motion normal, Motor strength normal, Sensation intact, Brachial pulse normal, Radial pulse normal, previous amputations of right hand digits 4 and 5 from accident yrs ago. (13:00 DHAM) LOWER EXTREMITY: Lower extremity exam included findings of inspection normal, Range of motion normal, Motor strength normal, Sensation intact, no edema, no calf tenderness, no palpable cords, upper and lower pulses feel symmetrical bilat. (13:00 DHAM) NEURO: Tina coma scale 15, Neuro exam findings include patient &a-1R&a+25V*p+0X*z6163N*c202B*c15G*c2P*p-0X&a-25V&a+1R Name: Trent Vazquez : 1930 M86 MedRec: [id number] AcctNum: [id number] Prepared: TueFeb 17, 2016 20:02 by Interface Page 8 of 12 pMD [facility] EMERGENCY RECORD oriented to person, place and time, Speech normal, Gait abnormal, walks bent forward with pain in the abdomen, Memory normal, Cranial nerves intact. (13:00 DHAM) SKIN: Skin exam included findings of skin warm, dry, and normal in color, no rash. (13:00 DHAM) PSYCHIATRIC: Psychiatric exam included findings of patient oriented to person place and time, Normal affect, Judgment normal, Insight normal. (13:00 DHAM) EVENTS TRANSFER: Triage to Emergency Emergency Room -02. (TueFeb 17, 2016 12:18 ASAH) Removed from Emergency Emergency Room -02. (14:48 LGIB) EKG INTERPRETATION (13:46 DHAM) 12 LEAD EKG INTERPRETATION: 12 lead EKG shows, sinus bradycardia, Rate (beats per minute): 55, with no ectopics, Conduction normal, ST segments normal, T waves normal, [place] normal. O2SAT INTERPRETATION (13:10 DHAM) O2SAT: Single pulse oximetry, Oxygen saturation 98%, on room air, Oxygen saturation interpretation: Normal, No intervention required. DOCTOR NOTES RE-EVALUATION: The patient's condition has improved, Pt feels much better after the Zofran. I suspect standing after the low dose fentanyl may have caused the nausea. I have discussed the lab results and need for further studies discussed with his daughter on the phone by the pt's request. US not available tomorrow. They are here today but with recent food and fentanyl the study will not be very good I suspect. (14:21 DHAM) TEXT: Pt had remarkable improvement with fentanyl 25mcg iv. 45 min later, he was laying on the right side and c/o pain of the right hip which is not unusual and wanted to get up to move around. He became nauseated and was given Zofran IV. His granddaughter Meir was here while I discussed his ct results and needing US of both the kidney cysts that have enlarged and the enlarged GB with stones. We did discuss the s/s of cholycystitis and need for recheck for any changes or concerns. (14:07 DHAM) PROBLEM LIST No recorded problems DIAGNOSIS (14:25 DHAM) FINAL: PRIMARY: Cholelithiasis, ADDITIONAL: renal cysts. DISPOSITION PATIENT: Disposition Type: Discharge, Disposition: *Discharge &a-1R&a+25V*p+0X*x9141Q*c202B*c15G*c2P*p-0X&a-25V&a+1R Name: Trent Vazquez : 1930 M86 MedRec: [id number] AcctNum: [id number] Prepared: TueFeb 17, 2016 20:02 by Interface Page 9 of 12 pMD [facility] EMERGENCY RECORD Home. (14:25 DHAM) Patient left the department. (14:48 LGIB) INSTRUCTION (14:27 DHAM) DISCHARGE: CHOLELITHIASIS WITH COLIC PRESUMED. FOLLOWUP: [facility] [address] [place] [address], . SPECIAL: Keep foods very low in fat See Dr. Ernandez to arrange ultrasound of the gallbladder and kidney cysts. Return for fever, increased pain, nausea/vomiting or any other concerns. PRESCRIPTION No recorded prescriptions IMAGING *DISCHARGE INSTRUCTIONS RECEIPT: Image captured from scanner. (14:49 LGIB) *SUPPLY CHARGE SHEET: Image captured from scanner. (14:49 LGIB) *EKG: Image captured from scanner. (14:51 LGIB) ADMIN (19:59 DHAM) DIGITAL SIGNATURE: MD Mumtaz, Sanya. RESULTS MICROBIOLOGY: Occult Blood, Stool DIAGNOSTIC: [id number] Collection DT: TueFeb 17, 2016 12:55, See comment below , @ ER ROOM#: ER-02 Source: Stool Spec Desc: PENDING, Fecal Occult Bld - Guaiac Negative for occult , blood . (12:58 DHAM) LABORATORY: CBC with Differential Collection DT: TueFeb 17, 2016 12:42, White Blood Cell (WBC) Count 9.5 thou/uL, Range (4.8-10.8), *Red Blood Cell (RBC) Count 4.25 - L mill/uL, Range (4.70-6.10), *Hemoglobin 12.0 - L g/dL, Range (14.0-18.0), *Hematocrit 37.4 - L %, Range (42.0-52.0), Mean Corpuscular Volume 88.0 fl, Range (80.0-94.0), Mean Corpuscular Hemoglobin 28.1 pg, Range (27.0-31.0), Mean Corpuscular HGB CONC 32.0 g/dL, Range (32.0-36.0), RBC Distribution Width 12.5 %, Range (11.5-14.5), Platelet Count 195 thou/uL, Range (130-400), *Mean Platelet Volume 5.6 - L fL, Range (7.4-10.4), %Neutrophils 68.9 %, Range (42.0-75.0), *%Lymphocytes 18.1 - L %, Range (21.0-51.0), %Monocytes 8.4 %, Range (0.0-10.0), %Eosinophils 4.0 %, Range (0.0-10.0), &a-1R&a+25V*p+0X*e4189S*c202B*c15G*c2P*p-0X&a-25V&a+1R Name: Trent Vazquez : 1930 M86 MedRec: [id number] AcctNum: [id number] Prepared: TueFeb 17, 2016 20:02 by Interface Page 10 of 12 pMD [facility] EMERGENCY RECORD %Basophils 0.6 %, Range (0.0-1.0), *#Neutrophils 6.6 - H thou/uL, Range (1.40-6.50), #Lymphocytes 1.7 thou/uL, Range (1.20-3.40), *#Monocytes 0.8 - H thou/uL, Range (0.11-0.59), #Eosinphils 0.4 thou/uL, Range (0.0-0.7), #Basophils 0.1 thou/uL, Range (0.0-0.2). (12:58 [facility]) Cardiac Profile w/CKMB & TropI Collection DT: TueFeb 17, 2016 12:42, CKMB 1.1 ng/mL, Range (0-6.6), Troponin I 0.015 ng/mL, Range (< 0.028), Reference Range , 0.00 - 0.028 ng/mL Negative 0.029 - 0.29 ng/mL , Indeterminate Greater or Equal to 0.3 ng/mL Strongly suggests [place] , . (13:11 [facility]) Lipase Collection DT: TueFeb 17, 2016 12:42, Lipase 12 U/L, Range (8-78). (13:11 [facility]) Comprehensive Metabolic Panel Collection DT: TueFeb 17, 2016 12:42, Sodium 138 mmol/L, Range (136-145), Potassium 4.4 mmol/L, Range (3.5-5.1), Chloride 107 mmol/L, Range (98-107), Carbon Dioxide 24 mmol/L, Range (23-31), Anion Gap 11 mmol/L, Range (10-20), *BUN (Urea Nitrogen) 31 - H mg/dL, Range (8.4-25.7), *Creatinine 1.80 - H mg/dL, Range (0.7-1.3), Estimated GFR-MDRD 36 , Reference Range for Estimated GFR: Greater than 90, mL/min/1.73 m2 NOTE: The MDRD equation has not been validated for use, with the elderly (over 70 years of age), women, patients with, serious comorbid condition or persons with extremes of body size, muscle, mass, or nutritional status. , *Glucose 152 - H mg/dL, Range (83-110), Calcium 8.9 mg/dL, Range (7.8-10.44), Bilirubin, Total 1.2 mg/dL, Range (0.2-1.2), Protein, Total 6.9 g/dL, Range (5.8-8.1), NOTE: Plasma values are generally 0.3 to 0.5 g/dL higher than serum values, due to the presence of fibrinogen. , Albumin 3.8 g/dL, Range (3.4-4.8), Globulin 3.1 g/dL, Range (2.4-3.5), Alb/Glob Ratio 1.2 g/dL, Range (1.2-2.2), Alkaline Phosphatase 90 U/L, Range (40-150), *AST (SGOT) 82 - H U/L, Range (5-34), ALT (SGPT) 39 U/L, Range (0-55). (13:11 [facility]) Urinalysis with Microscopic Collection DT: TueFeb 17, 2016 13:11, Color Yellow , Range (Yellow), Clarity Clear , Range (Clear), Specific [place], Urine 1.015 , Range (1.005-1.030), pH, Urine 6.0 , Range (5.0-9.0), &a-1R&a+25V*p+0X*q5739A*c202B*c15G*c2P*p-0X&a-25V&a+1R Name: Trent Vazquez : 1930 M86 MedRec: [id number] AcctNum: [id number] Prepared: TueFeb 17, 2016 20:02 by Interface Page 11 of 12 pMD [facility] EMERGENCY RECORD Leukocyte Negative , Range (Negative), Nitrite Negative , Range (Negative), Protein, Urine (Dipstick) Negative mg/dL, Range (Neg-Trace), Glucose, Urine (Dipstick) Negative mg/dL, Range (Negative), Ketone, Urine Negative mg/dL, Range (Negative), Urobilinogen 0.2 mg/dL, Range (0.2-1.0), Bilirubin Negative , Range (Negative), Blood, Urine Negative , Range (Negative), RBC/HPF None Seen HPF, Range (0-3), WBC/HPF 0-3 HPF, Range (0-3), Squamous Epithelial 0-3 HPF, Range (0-3), Bacteria/HPF Rare-Few HPF, Range (None Seen). (13:28 [facility]) Low: ASARaghu=MEGAN Menjivar, May [facility]=MD Mumtaz, Sanya LGIB=MEGAN Bella, Tonja &a-1R&a+25V*p+0X*i2228H*c202B*c15G*c2P*p-0X&a-25V&a+1R Name: Trent Vazquez DOB: 1930 M86 MedRec: [id number] AcctNum: [id number] Prepared: Mariel Feb 17, 2016 20:02 by Interface Page 12 of 12 pMD MTDD
== END 2016-02-17 14:45 | disposition home or self-care (01) ==
LOC: BURERS 12:09
DX: K80.20 Calculus of gallbladder without cholecystitis without obstruction (principal); N28.1 Cyst of kidney, acquired; I25.10 Atherosclerotic heart disease of native coronary artery without angina pectoris; I10 Essential (primary) hypertension; I48.91 Unspecified atrial fibrillation; Z89.021 Acquired absence of right finger(s); Z95.1 Presence of aortocoronary bypass graft
CPT/HCPCS: 71010; 74177; 80053; 81001; 82272; 82553; 83690; 84484; 85025; 93005; 94760; 96374; 96375; J2405; J3010

== ENCOUNTER 2016-02-20 08:49 | Outpatient (CLI) | payer MEDICARE ==
--- NOTE | 2016-02-20 12:35 | ULT ---
RIGHT UPPER QUADRANT ULTRASOUND: DATE: 02/20/16. FINDINGS: Ultrasonography of the right upper quadrant was performed for evaluation of an enlarged gallbladder on the recent CT scan. The patient's gallbladder has a thick wall, measuring just over 4 mm in thickness. Internally, ther e is a large nonshadowing echogenic density, basically soft tissue density, that does move some with positioning. The most likely etiology is a large sludge ball. Less likely is a large poorly calci fied stone or mass. In addition, the patient's common bile duct is prominently dilated measuring ju st over 9 mm in width. This all suggests active pathology in this location. The pancreas is not se en optimally, but the pieces that are seemed unremarkable. The liver size was normal. No dilated i ntrahepatic ducts were present. The right kidney has been surgically removed. IMPRESSION: A 3.6 cm soft tissue density inside a thick-walled gallbladder that is most likely a large sludge ba ll, but see other considerations above. The thick wall of the gallbladder suggests cholecystitis. It should also be noted that the common bile duct is enlarged (9 mm). CODE T POS: HOME
--- NOTE | 2016-02-20 12:38 | ULT ---
BILATERAL RENAL ULTRASOUND: DATE: 02/20/16. FINDINGS: Ultrasonography of the urinary tract was performed. A recent CT scan showed some cysts in the left kidney and other low-density areas that where needed to confirm whether they were cystic or solid, p articularly in view of his prior diagnosis and prior right nephrectomy. The right kidney has been surgically removed. The left kidney measures 10.2 x 4.7 x 4.9 cm. It ind eed has 2 cysts within it. One measures 2.5 x 2.2 x 2.3 cm. The other measures 1.9 x 2.3 x 2.1 cm. No solid masses were appreciated in the kidney. There is no hydronephrosis. Cortex around the le ft kidney seemed normal for the patient's age and the echogenicity was normal. No views of the urin oswaldo bladder were provided. IMPRESSION: Two left renal cysts. No solid masses detected. CODE T POS: HOME
== END 2016-02-20 08:50 | disposition home or self-care (01) ==
LOC: BURULT 08:49
PROVIDERS: ATTEND Family Medicine
DX: N28.1 Cyst of kidney, acquired (principal); K82.8 Other specified diseases of gallbladder; K83.8 Other specified diseases of biliary tract
CPT/HCPCS: 76705; 76770

== ENCOUNTER 2016-03-05 15:28 | Emergency (ER) | payer MEDICARE ==
[2016-03-05 16:02] LABS: #Basophils 0.1 thou/uL (0.0-0.2); #Eosinphils 0.2 thou/uL (0.0-0.7); #Lymphocytes 1.3 thou/uL (1.20-3.40); #Monocytes 1.1 thou/uL (0.11-0.59); #Neutrophils 13.6 thou/uL (1.40-6.50); %Basophils 0.3 % (0.0-1.0); %Monocytes 6.9 % (0.0-10.0); Hematocrit 33.2 % (42.0-52.0); Mean Platelet Volume 5.9 fL (7.4-10.4); Red Blood Cell (RBC) Count 3.76 mill/uL (4.70-6.10); White Blood Cell (WBC) Count 16.3 thou/uL (4.8-10.8)
[2016-03-05 16:13] LABS: ALT (SGPT) 45 U/L (0-55); AST (SGOT) 49 U/L (5-34); Alkaline Phosphatase 96 U/L (40-150); Anion Gap 13 mmol/L (10-20); Bilirubin, Total 1.1 mg/dL (0.2-1.2); Calc. Creatinine Clearance 0 mL/min (70-130); Calcium 8.7 mg/dL (7.8-10.44); Carbon Dioxide 22 mmol/L (23-31); Chloride 103 mmol/L (98-107); Estimated GFR-MDRD 32; Globulin 3.4 g/dL (2.4-3.5); Protein, Total 6.8 g/dL (5.8-8.1)
[2016-03-05 16:15] LABS: Troponin I Less than 0.010 ng/mL (< 0.028)
--- NOTE | 2016-03-05 16:40 | ERRECORD ---
HEALTH SYSTEM EMERGENCY RECORD HPI WEAK-DIZZY (16:00 [facility]) CHIEF COMPLAINT: Patient presents for evaluation of weakness. HISTORIAN: History provided by patient, 86M presents to the ED with reports of generalized weakness. States that yesterday he had a cholecystectomy at [facility], and today he has felt tired and weak. Denies focal weakness, denies pain, just states generalized malaise. LOCATION: Symptoms are generalized. QUALITY: Patient is alert and oriented to person, place and time, [place] coma score is 15. TIME COURSE: Patient unable to describe onset of symptoms, There has been no change in the patient's symptoms over time. ASSOCIATED WITH: No associated chest pain, No associated fever, No associated gait disturbance, No associated visual changes. EXACERBATED BY: Patient's condition exacerbated by exercise. RELIEVED BY: Patient's condition not relieved by lying flat. ROS (16:02 [facility]) CONSTITUTIONAL: Historian denies chills, reports fatigue, denies fever, reports lethargy, reports malaise, denies night sweats, reports weakness, denies weight loss. EYES: Negative eye review of systems, Historian denies eye pain, denies eye discharge, denies vision changes. ENT: Negative ears, nose, throat review of systems, Historian denies rhinorrhea, denies sore throat. CARDIOVASCULAR: Negative cardiovascular review of systems, Historian denies chest pain, denies palpitations. RESPIRATORY: Negative respiratory review of systems, Historian denies cough, denies shortness of breath. GI: Negative gastrointestinal review of systems, Historian denies abdominal pain, denies constipation, denies diarrhea, denies nausea, denies vomiting. GENITOURINARY MALE: Negative genitourinary review of systems, Historian denies dysuria, denies hematuria. MUSCULOSKELETAL: Negative musculoskeletal review of systems, Historian denies back pain, denies fall, denies injury, denies neck pain. SKIN: Negative skin review of systems, Historian denies rash, denies skin changes. NEUROLOGIC: Negative neurologic review of systems, Historian denies headache. HEMO/LYMPHATIC: Normal hematologic/lymphatic system review, Historian denies abnormal blood clotting. PAST MEDICAL HISTORY (15:33 [facility]) MEDICAL HISTORY: Past medical history includes coronary artery disease, Flu vaccine up to date, Pneumococcal vaccine up to date, hypertension, which has been treated/compliant, Atrial fib, HTN, history of malignancy, primary site kidney, bladder CA. 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 Triple CABG with valve replacement,. left knee replacement. PSYCHIATRIC HISTORY: DEPRESSION SINCE PASSING IN 2013. SOCIAL HISTORY: DENIES ETOH, TOBACCO OR DRUG USE. REVIEWED 02/07/16. KNOWN ALLERGIES No Known Drug Allergies CURRENT MEDICATIONS (15:32 [facility]) furosemide: TABLET : Strength - 20 mg : ORAL Patient Dose: 1 tab(s) Oral 2 times a day. atorvastatin: TABLET : Strength - 40 mg : ORAL Patient Dose: 1/2 tab(s) Oral once a day (at bedtime). finasteride: TABLET : Strength - 5 mg : ORAL Patient Dose: 1 tab(s) Oral once a day (in the morning). carvedilol: TABLET : Strength - 6.25 mg : ORAL Patient Dose: 1 tab(s) Oral 2 times a day. glipiZIDE: TABLET, EXTENDED RELEASE 24 HR : Strength - 2.5 mg : ORAL Patient Dose: 1 tab(s) Oral once a day (in the morning). alfuzosin: TABLET, EXTENDED RELEASE 24 HR : Strength - 10 mg : ORAL Patient Dose: 1 tab(s) Oral once a day (at bedtime). pantoprazole: TABLET, DELAYED RELEASE (ENTERIC COATED) : Strength - 40 mg : ORAL Patient Dose: 1 null Oral once a day (in the morning). amLODIPine: TABLET : Strength - 5 mg : ORAL Patient Dose: 1 tab(s) Oral once a day. VITAL SIGNS VITAL SIGNS: BP: 144/69, Pulse: 77, Resp: 18, Temp: 98.2 (Oral), Pain: 0, O2 sat: 95 on Room Air, Time: 03/05/2016 15:32. (15:32 [facility]) BP: 122/60, Pulse: 71, Resp: 25, Pain: 0, O2 sat: 94 on Room Air, Time: 03/05/2016 16:00. (16:00 [facility]) BP: 127/61, Pulse: 71, Resp: 20, Pain: 0, O2 sat: 95 on Room Air, Time: 03/05/2016 16:25. (16:25 [facility]) PHYSICAL EXAM (16:02 [facility]) CONSTITUTIONAL: Vital signs reviewed, Patient afebrile, Pulse normal, Blood pressure normal, Respiratory rate normal, Patient appears non toxic, Patient appears pain free, Patient alert and &a-1R&a+25V*p+0X*q8434T*c202B*c15G*c2P*p-0X&a-25V&a+1R Name: Trent Vazquez : 1930 M86 MedRec: [id number] AcctNum: [id number] Prepared: TueMar 05, 2016 17:11 by Interface Page 2 of 4 [facility]MD [facility] EMERGENCY RECORD oriented to person, place and time. HEAD: Head exam normal, Head exam included findings of head atraumatic, normocephalic. EYES: Eye exam normal, Eye exam included findings of eyelids normal to inspection, Pupils equally round and reactive to light, Extraocular muscles intact, no nystagmus. ENT: ENT exam normal, Ear exam normal, external ear normal, tympanic membranes normal, no bleeding, Pharynx exam normal, Uvula exam normal, Tonsil exam normal, Mouth exam normal, mucous membranes moist, teeth normal. NECK: Neck exam normal, Neck exam included findings of normal range of motion, Trachea midline, no meningeal signs, no cervical adenopathy, no tenderness. RESPIRATORY CHEST: Respiratory and chest exam normal, Respiratory exam included findings of no respiratory distress, Breath sounds clear. CARDIOVASCULAR: Cardiovascular assessment normal, Cardiovascular exam included findings of heart rate regular rate and rhythm, Heart sounds normal. ABDOMEN MALE: Abdominal exam included findings of abdomen nontender, Bowel sounds normal, no distension, no mass, no pulsatile masses, no peritoneal signs, no rigidity, no guarding, no rebound, Rovsing's sign absent. BACK: Back exam normal, Back exam included findings of normal inspection, range of motion normal, no tenderness. UPPER EXTREMITY: Upper extremity exam normal, Upper extremity exam included findings of inspection normal, Range of motion normal, Motor strength normal, Sensation intact, Radial pulse normal. LOWER EXTREMITY: Lower extremity exam normal, Lower extremity exam included findings of inspection normal, Range of motion normal, Motor strength normal, Sensation intact, Posterior tibial pulse normal, Pedal pulse normal. NEURO: Neuro exam normal, Neuro exam findings include patient oriented to person, place and time, Speech normal, Gait normal. SKIN: Skin exam normal, Skin exam included findings of skin warm, dry, and normal in color, no rash. PSYCHIATRIC: Psychiatric exam normal, Normal affect. EKG INTERPRETATION (16:05 [facility]) 12 LEAD EKG INTERPRETATION: 12 lead EKG interpreted by Emergency Department Physician at time of study, Interpretation: normal EKG. DOCTOR NOTES (16:32 [facility]) TEXT: Patient presented with generalized fatigue and weakness. Workup has been reassuring, and his physical exam is unremarkable as well. I believe his symptoms are likely secondary to regular post operative changes, as well as possibly related to the tramadol as well. Will change analgesics, and encourage follow up with PMD. PATIENT STATUS: Patient has improved since arrival to emergency &a-1R&a+25V*p+0X*f0280U*c202B*c15G*c2P*p-0X&a-25V&a+1R Name: Trent Vazquez : 1930 M86 MedRec: [id number] AcctNum: [id number] Prepared: TueMar 05, 2016 17:11 by Interface Page 3 of 4 [facility] EMERG[facility]Y [facility]ORD department. PATIENT PLAN: The patient will be discharged, The patient will follow up with primary care physician. PROBLEM LIST No recorded problems DIAGNOSIS (16:30 [facility]) FINAL: PRIMARY: Fatigue. PRESCRIPTION (16:30 [facility]) acetaminophen-codeine: TABLET : 300 mg-30 mg : ORAL : Quantity: 1 Unit: tab(s) Route: ORAL Schedule: every 6 hours PRN Dispense: 16 May substitute. Refills: No Refills . NOTES: No refills. DISPOSITION PATIENT: Disposition Type: Discharge, Disposition: *Discharge Home. (16:30 [facility]) Patient left the department. (17:08 [facility]) Low: ARCENIO=CHLOÉ Henderson, May [facility]=MD Aleksandra, Connor OR=MEGAN Thibodeaux, Scarlett &a-1R&a+25V*p+0X*m0944T*c202B*c15G*c2P*p-0X&a-25V&a+1R Name: Trent Vazquez : 1930 M86 MedRec: [id number] AcctNum: [id number] Prepared: TueMar 05, 2016 17:11 by Interface Page 4 of 4 pMD [facility]TDD
--- NOTE | 2016-03-05 16:46 | PICIS ---
[facility] EMERGENCY RECORD TRIAGE (TueMar 05, 2016 15:31 KMOR) TRIAGE NOTES: Weakness sp brock 1 day ago. Taking tramadol for pain. (TueMar 05, 2016 15:31 KMOR) PATIENT: NAME: Trent Vazquez, AGE: 86, GENDER: male, : [id number], TIME OF GREET: TueMar 05, 2016 15:29, PREFERRED LANGUAGE: Beninese, ETHNICITY: Not or , ECODE BILLING MAP: [facility], SSN: [id number], Zip Code: [address], KG WEIGHT: 83.91, PHONE: , , , PERSON ID: [id number], PAYMENT: [employer], PCP: MD Ernandez Kyle. (TueMar 05, 2016 15:31 KMOR) COMPLAINT: weakness. (TueMar 05, 2016 15:31 KMOR) ADMISSION: URGENCY: 3 Urgent, ADMISSION SOURCE: Home, TRANSPORT: CAR, BED: ER -04. (TueMar 05, 2016 15:31 KMOR) ASSESSMENT: Assessment: A&OX4. RR EVEN AND UNLABROED., Symptoms began 9 hours ago. (15:33 KMOR) PAIN: No complaint of pain. (15:33 KMOR) IMMUNIZATIONS: Flu vaccine up to date, Pneumococcal vaccine up to date. (15:33 KMOR) SIRS SCORING: Heart Rate 55-109 (0), Temp range 96.8-101.1 (0), respiratory rate 12-24 (0), Mental Status altered: no (0), Infection or Suspected Infection: No. (15:33 KMOR) TRIAGE SCREENING: Patient denies suicidal ideation, Patient denies presence of domestic violence. (15:33 KMOR) PROVIDERS: TRIAGE NURSE: Scarlett Thibodeaux RN. (TueMar 05, 2016 15:31 KMOR) VITAL SIGNS: BP 144/69, Pulse 77, Resp 18, Temp 98.2, (Oral), Pain 0, O2 Sat 95, on Room Air, Time 03/05/2016 15:32. (15:32 KMOR) PREVIOUS VISIT ALLERGIES: No Known Drug Allergies. (TueMar 05, 2016 15:31 KMOR) No Known Drug Allergies. (15:33 KMOR) KNOWN ALLERGIES No Known Drug Allergies CURRENT MEDICATIONS (15:32 KMOR) furosemide: TABLET : Strength - 20 mg : ORAL Patient Dose: 1 tab(s) Oral 2 times a day. atorvastatin: TABLET : Strength - 40 mg : ORAL Patient Dose: 1/2 tab(s) Oral once a day (at bedtime). finasteride: TABLET : Strength - 5 mg : ORAL Patient Dose: 1 tab(s) Oral once a day (in the morning). carvedilol: TABLET : Strength - 6.25 mg : ORAL Patient Dose: 1 tab(s) Oral 2 times a day. glipiZIDE: TABLET, EXTENDED RELEASE 24 HR : Strength - 2.5 mg : ORAL Patient Dose: 1 tab(s) Oral once a day (in the morning). &a-1R&a+25V*p+0X*t6924M*c202B*c15G*c2P*p-0X&a-25V&a+1R Name: Trent Vazquez : 1930 M86 MedRec: [id number] AcctNum: [id number] Prepared: TueMar 05, 2016 17:17 by Interface Page 1 of 8 pMD [facility] EMERGENCY RECORD alfuzosin: TABLET, EXTENDED RELEASE 24 HR : Strength - 10 mg : ORAL Patient Dose: 1 tab(s) Oral once a day (at bedtime). pantoprazole: TABLET, DELAYED RELEASE (ENTERIC COATED) : Strength - 40 mg : ORAL Patient Dose: 1 null Oral once a day (in the morning). amLODIPine: TABLET : Strength - 5 mg : ORAL Patient Dose: 1 tab(s) Oral once a day. VITAL SIGNS VITAL SIGNS: BP: 144/69, Pulse: 77, Resp: 18, Temp: 98.2 (Oral), Pain: 0, O2 sat: 95 on Room Air, Time: 03/05/2016 15:32. (15:32 KMOR) BP: 122/60, Pulse: 71, Resp: 25, Pain: 0, O2 sat: 94 on Room Air, Time: 03/05/2016 16:00. (16:00 KMOR) BP: 127/61, Pulse: 71, Resp: 20, Pain: 0, O2 sat: 95 on Room Air, Time: 03/05/2016 16:25. (16:25 KMOR) NURSING ASSESSMENT: CVA ASSESSMENT TOOL (15:58 KMOR) NIHSS: CVA assessment findings: Level of consciousness: alert, keenly responsive (0), Questions: answers both questions correctly (0), Commands: performs both tasks correctly (0), Best gaze: normal (0), Visual: no visual loss (0), Facial palsy: normal symmetrical movement (0), Motor Left Arm: no drift, arm stays 90/45 degrees for full 10 seconds (0), Motor Right Arm: drift, arm drifts down but does not hit bed or other support (1), Motor left leg: drift, leg drifts down but does not hit bed or other support (1), Motor right leg: no drift, leg stays at 30 degrees for full five seconds (0), Limb ataxia absent (0), Sensory: normal, no sensory loss (0), Best language: no aphasia; normal (0), Dysarthria: normal (0), Extinction and Inattention: normal (0), Total score 2. NURSING ASSESSMENT: HEAD-TO-TOE (15:50 KMOR) CONSTITUTIONAL: Patient arrives, via hospital wheelchair, Gait steady, History obtained from patient, Patient appears comfortable, Patient cooperative, Patient alert, Oriented to person, place and time, Skin warm, Skin dry, Skin normal in color, Mucous membranes pink, Mucous membranes moist, Patient is well-groomed, Patient complains of Weakness, Patient reports having lap brock done yesterday by Dr. Crowley, reports today feeling weak and tired. No nausea, no vomiting, no pain. PAIN: Patient rates pain as 0 out of 10. SKIN: Skin assessment findings include skin warm, Skin dry, Skin normal in color. NEURO: Pupils equally round and reactive to light, Left pupil 2 mm in size, Right pupil 2 mm in size, Able to close eyes, Face symmetrical, Speech normal, no nystagmus, no visual changes, no facial droop, no facial numbness, GCS:, Eye opening: (4) - Spontaneous, Verbal: (5) - Oriented/conversive, Motor: (6) - Obeys commands/Spontaneous, GCS Total: 15, Hand grasps equal, &a-1R&a+25V*p+0X*o3990I*c202B*c15G*c2P*p-0X&a-25V&a+1R Name: Trent Vazquez : 1930 M86 MedRec: [id number] AcctNum: [id number] Prepared: TueMar 05, 2016 17:17 by Interface Page 2 of 8 pMD [facility] EMERGENCY RECORD Upper extremity strength strong, Lower extremity strength strong, Foot press equal, Numbness, to bilateral lower extremities, no associated dizziness present, no associated memory loss, no associated loss of consciousness, no associated seizures, no associated syncopal episode, no associated vomiting, no associated weakness. ENT: Mouth and throat assessment findings include mouth inspection normal, Uvula normal, Tonsils normal, Mucous membranes pink, and moist, Able to swallow, Speech normal, no associated headache. RESPIRATORY/CHEST: Breath sounds clear, Respiratory assessment findings include respiratory effort easy, Respirations regular, Conversing normally, Neck and chest exam findings include trachea midline, Chest expansion equal, Chest movement symmetrical, no signs of distress, no associated cough noted. CARDIOVASCULAR: Cardiovascular assessment findings include heart rate normal, Heart rhythm normal sinus, Heart sounds normal, S1, S2, Left radial pulse +3(easily palpated, considered normal), Right radial pulse +3(easily palpated, considered normal), Left dorsalis pedis pulse +2(difficult to palpate), Right dorsalis pedis pulse +2(difficult to palpate), Associated with, no edema to the upper extremities, +1 edema to the lower extremities, Associated with weakness, No history of pulmonary embolism, No history of DVT or leg swelling. ABDOMEN: Incision(s), to abdomen, Date and type of recent surgical procedure 03/04/2016, Incision site approximated, glue in place. minimal bruising, no drainage., Scars, to midline chest, Abdomen soft, Bowel sound normal, no associated nausea, no associated vomiting, no associated diarrhea. NOTES: Patient tolerated procedure well. NURSING PROCEDURE: BEDSIDE RADIOLOGY (15:45 KMOR) PATIENT IDENTIFIER: Patient actively involved in identification process, Patient's identity verified by patient stating name, Patient's identity verified by patient stating date. BEDSIDE RADIOLOGY: Portable chest x-ray performed. NURSING PROCEDURE: CORRUGATED FASTENER DRIVER (15:47 KMOR) PATIENT IDENTIFIER: Patient actively involved in identification process, Patient's identity verified by patient stating name, Patient's identity verified by patient stating date. CORRUGATED FASTENER DRIVER: Cardiac monitoring indicated for mental status changes, Patient placed on tooling specialist, Heart rate: 75, showing normal sinus rhythm, Patient placed on non-invasive blood pressure monitor, with disposable blood pressure cuff applied, Patient placed on continuous pulse oximetry, Adult/pediatric oxisensor applied, Oxygen saturation 95%. NOTES: Patient tolerated procedure well. &a-1R&a+25V*p+0X*s4436J*c202B*c15G*c2P*p-0X&a-25V&a+1R Name: Trent Vazquez : 1930 M86 MedRec: [id number] AcctNum: [id number] Prepared: TueMar 05, 2016 17:17 by Interface Page 3 of 8 D [facility] EMERGENCY RECORD NURSING PROCEDURE: DISCHARGE NOTE (16:54 AHOO) DISCHARGE: Patient discharged to home, in a wheelchair, family driving, accompanied by other family member, Summary of Care printed/ provided, Transition record given to patient, Discharge instructions given to patient, Discharge instructions given to pt son in law, Prescriptions given and instructions on side effects given, Above person(s) verbalized understanding of discharge instructions and follow-up care, Patient treated and evaluated by physician. NURSING PROCEDURE: EKG CHART (15:37 AHOO) PATIENT IDENTIFIER: Patient actively involved in identification process, Patient's identity verified by patient stating name, Patient's identity verified by patient stating date, Patient's identity verified by hospital ID bracelet. EKG: EKG indicated for WEAKNESS, 12 lead EKG performed on the left chest, done by MICHAEL THOMSON LVN, first EKG. FOLLOW-UP: After procedure, EKG for interpretation given to Dr. DR BLUE. NURSING PROCEDURE: IV PATIENT IDENITIFIER: Patient actively involved in identification process, Patient's identity verified by patient stating name, Patient's identity verified by patient stating date. (15:40 KMOR) IV SITE 1: IV therapy indicated for hydration, IV therapy indicated for medication administration, IV established, to the right antecubital, using an 18 gauge catheter, in one attempt, Saline lock established, Flushed with normal saline (mls): 10cc, Labs drawn at time of placement, labeled in the presence of the patient and sent to lab. (15:40 KMOR) FOLLOW-UP SITE 1: After procedure, 2x3 ensure dressing applied. (15:40 KMOR) IV discontinued, due to patient being discharged, catheter intact. (16:37 KMOR) NOTES: Patient tolerated procedure well. (15:40 KMOR) Patient tolerated procedure well. (16:37 KMOR) NURSING PROCEDURE: NURSE NOTES (16:11 KMOR) NURSES NOTES: Notes: Pillow placed under patient legs for comfort. Patient denies other needs at this time. ORDER DETAILS Order Name: Cardiac Profile w/CKMB & Troponin - I, Status: Active, Time: 15:35 03/05/2016, User: ANKIT, - Ordered for: MD Blue Jason, - Entered by: MD Blue Jason - TueMar 05, 2016 15:35, - Quantity: 1, Order Name: CBC with Differential, Status: Active, Time: 15:35 03/05/2016, User: ANKIT, &a-1R&a+25V*p+0X*k8246M*c202B*c15G*c2P*p-0X&a-25V&a+1R Name: Trent Vazquez : 1930 M86 MedRec: [id number] AcctNum: [id number] Prepared: TueMar 05, 2016 17:17 by Interface Page 4 of 8 D [facility] EMERGENCY RECORD - Ordered for: MD Blue Jason, - Entered by: MD Blue Jason - TueMar 05, 2016 15:35, - Quantity: 1, Order Name: Comprehensive Metabolic Panel, Status: Active, Time: 15:35 03/05/2016, User: ANKIT, - Ordered for: MD Blue Jason, - Entered by: MD Blue Jason - Evelio Mar 05, 2016 15:35, - Quantity: 1, Order Name: EKG 12 Lead in Emergency Room, Status: Active, Time: 15:35 03/05/2016, User: ANKIT, - Ordered for: MD Blue Jason, - Entered by: MD Blue Jason - TueMar 05, 2016 15:35, - Quantity: 1, Order Name: PTT, Status: Active, Time: 15:35 03/05/2016, User: ANKIT, - Ordered for: MD Blue Jason, - Entered by: MD Blue Jason - TueMar 05, 2016 15:35, - Quantity: 1, Order Name: SALINE LOCK, Status: Done, Time: 15:47 03/05/2016, User: DIMPLE, - Ordered for: MD Blue Jason, - Entered by: MD Blue Jason - TueMar 05, 2016 15:35, - Quantity: 1, Order Name: XR Chest 1 View Portable, Status: Active, Time: 15:35 03/05/2016, User: ANKIT, - Ordered for: MD Blue Jason, - Entered by: MD Blue Jason - TueMar 05, 2016 15:35, - Quantity: 1. HPI WEAK-DIZZY (16:00 [facility]) CHIEF COMPLAINT: Patient presents for evaluation of weakness. HISTORIAN: History provided by patient, 86M presents to the ED with reports of generalized weakness. States that yesterday he had a cholecystectomy at [facility], and today he has felt tired and weak. Denies focal weakness, denies pain, just states generalized malaise. LOCATION: Symptoms are generalized. QUALITY: Patient is alert and oriented to person, place and time, Linnette coma score is 15. TIME COURSE: Patient unable to describe onset of symptoms, There has been no change in the patient's symptoms over time. ASSOCIATED WITH: No associated chest pain, No associated fever, No associated gait disturbance, No associated visual changes. EXACERBATED BY: Patient's condition exacerbated by exercise. RELIEVED BY: Patient's condition not relieved by lying flat. ROS (16:02 [facility]) CONSTITUTIONAL: Historian denies chills, reports fatigue, denies fever, reports lethargy, reports malaise, denies night sweats, reports weakness, denies weight loss. &a-1R&a+25V*p+0X*l1618N*c202B*c15G*c2P*p-0X&a-25V&a+1R Name: Trent Vazquez : 1930 M86 MedRec: [id number] AcctNum: [id number] Prepared: TueMar 05, 2016 17:17 by Interface Page 5 of 8 pMD [facility] EMERGENCY RECORD EYES: Negative eye review of systems, Historian denies eye pain, denies eye discharge, denies vision changes. ENT: Negative ears, nose, throat review of systems, Historian denies rhinorrhea, denies sore throat. CARDIOVASCULAR: Negative cardiovascular review of systems, Historian denies chest pain, denies palpitations. RESPIRATORY: Negative respiratory review of systems, Historian denies cough, denies shortness of breath. GI: Negative gastrointestinal review of systems, Historian denies abdominal pain, denies constipation, denies diarrhea, denies nausea, denies vomiting. GENITOURINARY MALE: Negative genitourinary review of systems, Historian denies dysuria, denies hematuria. MUSCULOSKELETAL: Negative musculoskeletal review of systems, Historian denies back pain, denies fall, denies injury, denies neck pain. SKIN: Negative skin review of systems, Historian denies rash, denies skin changes. NEUROLOGIC: Negative neurologic review of systems, Historian denies headache. HEMO/LYMPHATIC: Normal hematologic/lymphatic system review, Historian denies abnormal blood clotting. PAST MEDICAL HISTORY (15:33 KMOR) MEDICAL HISTORY: Past medical history includes coronary artery disease, Flu vaccine up to date, Pneumococcal vaccine up to date, hypertension, which has been treated/compliant, Atrial fib, HTN, history of malignancy, primary site kidney, bladder CA. 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 Triple CABG with valve replacement,. left knee replacement. PSYCHIATRIC HISTORY: DEPRESSION SINCE PASSING IN 2013. SOCIAL HISTORY: DENIES ETOH, TOBACCO OR DRUG USE. REVIEWED 02/07/16. PHYSICAL EXAM (16:02 [facility]) CONSTITUTIONAL: Vital signs reviewed, Patient afebrile, Pulse normal, Blood pressure normal, Respiratory rate normal, Patient appears non toxic, Patient appears pain free, Patient alert and oriented to person, place and time. HEAD: Head exam normal, Head exam included findings of head atraumatic, normocephalic. EYES: Eye exam normal, Eye exam included findings of eyelids normal to inspection, Pupils equally round and reactive to light, Extraocular muscles intact, no nystagmus. ENT: ENT exam normal, Ear exam normal, external ear normal, tympanic membranes normal, no bleeding, Pharynx exam normal, Uvula exam normal, Tonsil exam normal, Mouth exam normal, mucous membranes &a-1R&a+25V*p+0X*a1984X*c202B*c15G*c2P*p-0X&a-25V&a+1R Name: Trent Vazquez : 1930 M86 MedRec: [id number] AcctNum: [id number] Prepared: TueMar 05, 2016 17:17 by Interface Page 6 of 8 pMD [facility] EMERGENCY RECORD moist, teeth normal. NECK: Neck exam normal, Neck exam included findings of normal range of motion, Trachea midline, no meningeal signs, no cervical adenopathy, no tenderness. RESPIRATORY CHEST: Respiratory and chest exam normal, Respiratory exam included findings of no respiratory distress, Breath sounds clear. CARDIOVASCULAR: Cardiovascular assessment normal, Cardiovascular exam included findings of heart rate regular rate and rhythm, Heart sounds normal. ABDOMEN MALE: Abdominal exam included findings of abdomen nontender, Bowel sounds normal, no distension, no mass, no pulsatile masses, no peritoneal signs, no rigidity, no guarding, no rebound, Rovsing's sign absent. BACK: Back exam normal, Back exam included findings of normal inspection, range of motion normal, no tenderness. UPPER EXTREMITY: Upper extremity exam normal, Upper extremity exam included findings of inspection normal, Range of motion normal, Motor strength normal, Sensation intact, Radial pulse normal. LOWER EXTREMITY: Lower extremity exam normal, Lower extremity exam included findings of inspection normal, Range of motion normal, Motor strength normal, Sensation intact, Posterior tibial pulse normal, Pedal pulse normal. NEURO: Neuro exam normal, Neuro exam findings include patient oriented to person, place and time, Speech normal, Gait normal. SKIN: Skin exam normal, Skin exam included findings of skin warm, dry, and normal in color, no rash. PSYCHIATRIC: Psychiatric exam normal, Normal affect. LAB INTERPRETATION (16:32 [facility]) INTERPRETATION: I reviewed the lab results, CBC normal, Chemistry normal, Cardiac enzymes normal. EVENTS TRANSFER: Triage to Emergency Emergency Room -04. (TueMar 05, 2016 15:31 KMOR) Removed from Emergency Emergency Room -04. (17:08 [facility]) EKG INTERPRETATION (16:05 [facility]) 12 LEAD EKG INTERPRETATION: 12 lead EKG interpreted by Emergency Department Physician at time of study, Interpretation: normal EKG. DOCTOR NOTES (16:32 [facility]) TEXT: Patient presented with generalized fatigue and weakness. Workup has been reassuring, and his physical exam is unremarkable as well. I believe his symptoms are likely secondary to regular post operative changes, as well as possibly related to the tramadol as well. Will change analgesics, and encourage follow up with PMD. PATIENT STATUS: Patient has improved since arrival to emergency &a-1R&a+25V*p+0X*u2217M*c202B*c15G*c2P*p-0X&a-25V&a+1R Name: Trent Vazquez : 1930 M86 MedRec: [id number] AcctNum: [id number] Prepared: TueMar 05, 2016 17:17 by Interface Page 7 of 8 pMD [facility] EMERGENCY RECORD department. PATIENT PLAN: The patient will be discharged, The patient will follow up with primary care physician. PROBLEM LIST No recorded problems DIAGNOSIS (16:30 [facility]) FINAL: PRIMARY: Fatigue. DISPOSITION PATIENT: Disposition Type: Discharge, Disposition: *Discharge Home. (16:30 [facility]) Patient left the department. (17:08 [facility]) INSTRUCTION (16:31 [facility]) DISCHARGE: PAIN POSTOP. FOLLOWUP: MD Ernandez Kyle, [facility], [address] [place] [address], . SPECIAL: Follow up with your regular doctor next week. Return if you have any chest pain, shortness of breath, or worsening weakness. PRESCRIPTION (16:30 [facility]) acetaminophen-codeine: TABLET : 300 mg-30 mg : ORAL : Quantity: 1 Unit: tab(s) Route: ORAL Schedule: every 6 hours PRN Dispense: 16 May substitute. Refills: No Refills . NOTES: No refills. IMAGING *EKG: Image captured from scanner. (16:01 [facility]) *DISCHARGE INSTRUCTIONS RECEIPT: Image captured from scanner. (17:06 [facility]) *SUPPLY CHARGE SHEET: Image captured from scanner. (17:06 [facility]) ADMIN (16:33 [facility]) DIGITAL SIGNATURE: MD Blue Jason. Low: OO=CHLOÉ ThomsonMay [facility]MD Blue Jason KMOR=MEGAN Thibodeaux, Scarlett &a-1R&a+25V*p+0X*o4683U*c202B*c15G*c2P*p-0X&a-25V&a+1R Name: Trent Vazquez : 1930 M86 MedRec: [id number] AcctNum: [id number] Prepared: TueMar 05, 2016 17:17 by Interface Page 8 of 8 pMD MTDD
[2016-03-05 17:12] LABS: BUN (Urea Nitrogen) 39 mg/dL (8.4-25.7)
--- NOTE | 2016-03-05 20:36 | RAD ---
PORTABLE CHEST 03/05/16 An AP portable film at 1542 is compared with a 03/02/[address] [facility]. The depth of inspiration is shallow today, therefore, it is difficult to see the lower lobe well. No major lobar infiltrate was appreciated. No large effusions were seen, though small ones could possi brock be present in the right base. The heart is mildly enlarged. Arteriosclerotic change is seen in t he aorta as usual. There is no clear vascular congestion. IMPRESSION: Shallow breath with no definite acute finding. POS: HOME
== END 2016-03-05 16:54 | disposition home or self-care (01) ==
LOC: BURERS 15:28
DX: R53.83 Other fatigue (principal); I10 Essential (primary) hypertension; I48.91 Unspecified atrial fibrillation; F32.9 Major depressive disorder, single episode, unspecified; Z79.899 Other long term (current) drug therapy
CPT/HCPCS: 71010; 80053; 82553; 84484; 85025; 85730; 93005

== ENCOUNTER 2016-04-23 01:37 | Emergency (ER) | payer MEDICARE ==
[2016-04-23 02:18] LABS: #Eosinphils 0.1 thou/uL (0.0-0.7); #Lymphocytes 1.1 thou/uL (1.20-3.40); #Monocytes 0.6 thou/uL (0.11-0.59); #Neutrophils 7.2 thou/uL (1.40-6.50); %Basophils 0.3 % (0.0-1.0); %Eosinophils 1.6 % (0.0-10.0); %Lymphocytes 12.1 % (21.0-51.0); %Monocytes 6.1 % (0.0-10.0); %Neutrophils 79.9 % (42.0-75.0); Hemoglobin 11.7 g/dL (14.0-18.0); Mean Corpuscular Hemoglobin 27.1 pg (27.0-31.0); Mean Corpuscular Volume 84.6 fl (80.0-94.0); Mean Platelet Volume 5.2 fL (7.4-10.4); Platelet Count 210 thou/uL (130-400); RBC Distribution Width 12.5 % (11.5-14.5); Red Blood Cell (RBC) Count 4.32 mill/uL (4.70-6.10); White Blood Cell (WBC) Count 9.1 thou/uL (4.8-10.8)
[2016-04-23] MEDS ORDERED: Albuterol Sulfate 1.25 MG/3 ML NEB ONE (02:26)
[2016-04-23] MEDS ORDERED: cefTRIAXone\\ROCEPHIN 1 GM VIAL ONE (02:26)
[2016-04-23] MEDS ORDERED: Sodium Chloride 0.9% 100 ML ONE (02:28)
[2016-04-23 02:31] LABS: ALT (SGPT) 11 U/L (0-55); AST (SGOT) 12 U/L (5-34); Albumin 3.6 g/dL (3.4-4.8); Alkaline Phosphatase 83 U/L (40-150); Anion Gap 11 mmol/L (10-20); BUN (Urea Nitrogen) 43 mg/dL (8.4-25.7); Bilirubin, Total 0.6 mg/dL (0.2-1.2); Calc. Creatinine Clearance 0 mL/min (70-130); Calcium 8.8 mg/dL (7.8-10.44); Carbon Dioxide 24 mmol/L (23-31); Chloride 105 mmol/L (98-107); Estimated GFR-MDRD 37; Globulin 3.3 g/dL (2.4-3.5); Glucose 182 mg/dL (83-110); Protein, Total 6.9 g/dL (5.8-8.1); Sodium 136 mmol/L (136-145)
[2016-04-23 02:32] LABS: Bilirubin Negative (Negative); Blood, Urine Negative (Negative); Clarity Clear (Clear); Glucose, Urine (Dipstick) 100 mg/dL (Negative); Leukocyte Negative (Negative); Nitrite Negative (Negative); Protein, Urine (Dipstick) Trace mg/dL (Neg-Trace); Specific Gravity, Urine 1.015 (1.005-1.030); Urobilinogen 0.2 mg/dL (0.2-1.0); pH, Urine 6.5 (5.0-9.0)
[2016-04-23] MEDS ORDERED: Ondansetron HCl/PF 4 MG/2 ML Vial ONE (02:34)
--- NOTE | 2016-04-23 08:10 | RAD ---
TWO VIEW CHEST: COMPARISON: 03/05/16. CLINICAL HISTORY: Cough, respiratory infection. FINDINGS: The patient is rotated. There is no lobar consolidation, effusion, or discrete pneumothorax. Post sternotomy noted. Cardiac silhouette is prominent. Cardiac valvular prosthesis is seen. IMPRESSION: No lobar consolidation. POS: [facility]
== END 2016-04-23 03:15 | disposition home or self-care (01) ==
LOC: BURERS 01:37
DX: J20.9 Acute bronchitis, unspecified (principal); I10 Essential (primary) hypertension; F32.9 Major depressive disorder, single episode, unspecified
CPT/HCPCS: 71020; 80053; 81003; 83880; 85025; 94640; 96365; 96375; J0696; J2405; J7050

== ENCOUNTER 2016-04-24 12:26 | Emergency (ER) | payer MEDICARE ==
[2016-04-24] MEDS ORDERED: methylPREDNISolone Acetate 40 mg/ml Vial ONE (13:15)
--- NOTE | 2016-04-24 15:39 | RAD ---
CHEST TWO VIEWS 04/24/16 HISTORY: Cough and wheezing. The heart size appears slightly enlarged. There are postop sternotomy change. Chronic lung changes a re seen without focal infiltrates. IMPRESSION: 1. Cardiomegaly with postop sternotomy change and valve replacement. 2. Mild chronic lung change. POS: [facility]
== END 2016-04-24 13:36 | disposition home or self-care (01) ==
LOC: BURERS 12:26
DX: J20.9 Acute bronchitis, unspecified (principal); I10 Essential (primary) hypertension; I48.91 Unspecified atrial fibrillation; F32.9 Major depressive disorder, single episode, unspecified
CPT/HCPCS: 71020; 94640; 96372; J1030; J7620

== ENCOUNTER 2016-05-05 21:25 | Emergency (ER) | payer MEDICARE ==
[2016-05-05 22:39] LABS: #Eosinphils 0.2 thou/uL (0.0-0.7); #Lymphocytes 1.7 thou/uL (1.20-3.40); #Monocytes 0.7 thou/uL (0.11-0.59); #Neutrophils 7.9 thou/uL (1.40-6.50); %Basophils 0.3 % (0.0-1.0); %Eosinophils 1.7 % (0.0-10.0); %Lymphocytes 16.3 % (21.0-51.0); %Monocytes 6.5 % (0.0-10.0); %Neutrophils 75.2 % (42.0-75.0); Hemoglobin 12.1 g/dL (14.0-18.0); Mean Corpuscular HGB CONC 31.9 g/dL (32.0-36.0); Mean Corpuscular Hemoglobin 27.9 pg (27.0-31.0); Mean Corpuscular Volume 87.5 fl (80.0-94.0); Mean Platelet Volume 5.8 fL (7.4-10.4); Platelet Count 190 thou/uL (130-400); Red Blood Cell (RBC) Count 4.34 mill/uL (4.70-6.10); White Blood Cell (WBC) Count 10.5 thou/uL (4.8-10.8)
[2016-05-05 22:40] LABS: INR-International Normal Ratio 1.1
[2016-05-05] MEDS ORDERED: Ondansetron HCl/PF 4 MG/2 ML Vial ONE (22:46)
[2016-05-05 22:51] LABS: ALT (SGPT) 25 U/L (0-55); AST (SGOT) 13 U/L (5-34); Albumin 3.6 g/dL (3.4-4.8); Alkaline Phosphatase 108 U/L (40-150); Anion Gap 13 mmol/L (10-20); BUN (Urea Nitrogen) 50 mg/dL (8.4-25.7); Bilirubin, Total 0.6 mg/dL (0.2-1.2); Calc. Creatinine Clearance 0 mL/min (70-130); Calcium 8.6 mg/dL (7.8-10.44); Carbon Dioxide 21 mmol/L (23-31); Chloride 108 mmol/L (98-107); Estimated GFR-MDRD 37; Globulin 3.1 g/dL (2.4-3.5); Glucose 182 mg/dL (83-110); Protein, Total 6.7 g/dL (5.8-8.1); Sodium 137 mmol/L (136-145)
[2016-05-05 22:54] LABS: CKMB 1.2 ng/mL (0-6.6); Troponin I 0.016 ng/mL (< 0.028)
--- NOTE | 2016-05-05 23:26 | RAD ---
RIGHT FEMUR 05/05/16 Views of the right femur show a subcapital fracture of the right hip. Looking back at an abdominal f ilm from January [address] of the abdomen and pelvis from February 2016 which included the femur , this is clearly a new finding since these studies. There is no dislocation of the femoral head. Th e remainder of the femur appears intact. IMPRESSION: Impacted subcapital fracture of the right hip. POS: HOME
--- NOTE | 2016-05-05 23:27 | RAD ---
RIGHT HIP TWO VIEWS 05/05/16 An impacted subcapital fracture is present. It was not present on radiographic studies done this pas t January and February. The adjacent pubic ring appears intact. The articular surface of the femoral head is smooth. IMPRESSION: Impacted subcapital fracture of the right hip. POS: HOME
--- NOTE | 2016-05-05 23:29 | RAD ---
PELVIS ONE VIEW 05/05/16 The bulk of the bony pelvis is intact, though areas around the SI joints are not seen well due to ov erlying bowel gas. The left hip appears normal for age. The right hip shows an impacted subcapital f racture. There is no widening of the symphysis. IMPRESSION: Impacted subcapital fracture of the right hip. POS: HOME
--- NOTE | 2016-05-05 23:31 | RAD ---
PORTABLE CHEST 05/05/16 An AP portable film at 2303 is compared with a 04/24/16 study. There has been no significant interval change. Mild cardiomegaly is no different than before. There are no congestive changes or large pleural effusions. The lungs are clear. The left costophrenic ang le is not seen on this study. The median sternotomy sutures are noted from prior surgery. IMPRESSION: Minimal cardiomegaly with no acute findings. POS: HOME
== END 2016-05-05 23:28 | disposition short-term general hospital (02) ==
LOC: BURERS 21:25
DX: S72.011A Unspecified intracapsular fracture of right femur, initial encounter for closed fracture (principal); I25.10 Atherosclerotic heart disease of native coronary artery without angina pectoris; I48.91 Unspecified atrial fibrillation; I10 Essential (primary) hypertension; W18.30XA Fall on same level, unspecified, initial encounter; Z79.899 Other long term (current) drug therapy
CPT/HCPCS: 36415; 71010; 72170; 80053; 82553; 84484; 85025; 85610; 93005; 96361; 96374; 96375; J2270; J2405

== ENCOUNTER 2016-08-03 08:36 | Outpatient (CLI) | payer MEDICARE ==
--- NOTE | 2016-08-03 22:08 | RAD ---
RIGHT HIP TWO VIEWS 08/03/2016 Comparison is made with a 05/06/2016 intraoperative film. There has been an ORIF of the subcapital h ip fracture. Alignment seems good. The articular surface of the femoral head is smooth. The joint space is normal. Minor degenerative changes are seen in the joint. IMPRESSION: Expected post-op change with no significant findings. POS: HOME
== END 2016-08-03 08:37 | disposition home or self-care (01) ==
LOC: BURRAD 08:36
PROVIDERS: ATTEND Family Medicine
DX: M25.551 Pain in right hip (principal)

== ENCOUNTER 2016-08-04 08:46 | Outpatient (CLI) | payer MEDICARE ==
[2016-08-04 11:19] LABS: #Eosinphils 0.4 thou/uL (0.0-0.7); #Lymphocytes 2.1 thou/uL (1.20-3.40); #Monocytes 0.8 thou/uL (0.11-0.59); #Neutrophils 5.7 thou/uL (1.40-6.50); %Basophils 0.5 % (0.0-1.0); %Eosinophils 4.7 % (0.0-10.0); %Lymphocytes 22.8 % (21.0-51.0); %Monocytes 9.2 % (0.0-10.0); %Neutrophils 62.7 % (42.0-75.0); Hemoglobin 12.2 g/dL (14.0-18.0); Mean Corpuscular HGB CONC 34.1 g/dL (32.0-36.0); Mean Corpuscular Hemoglobin 29.3 pg (27.0-31.0); Mean Corpuscular Volume 86.1 fl (80.0-94.0); Platelet Count 175 thou/uL (130-400); RBC Distribution Width 13.4 % (11.5-14.5); Red Blood Cell (RBC) Count 4.16 mill/uL (4.70-6.10)
[2016-08-04 11:46] LABS: ALT (SGPT) 13 U/L (8-55); AST (SGOT) 18 U/L (5-34); Albumin 3.5 g/dL (3.4-4.8); Alkaline Phosphatase 83 U/L (40-150); Anion Gap 15 mmol/L (10-20); BUN (Urea Nitrogen) 32 mg/dL (8.4-25.7); Bilirubin, Total 0.6 mg/dL (0.2-1.2); Calc. Creatinine Clearance 0 mL/min (70-130); Calcium 8.7 mg/dL (7.8-10.44); Cardiac Risk 3.4 (Less than 4.5); Chloride 107 mmol/L (98-107); Cholesterol 115 mg/dl (< 200 Desired); Estimated GFR-MDRD 40; Glucose 155 mg/dL (83-110); HDL Cholesterol 34 mg/dL (>60 Neg Risk); Hemoglobin A1c 6.7 % (4.0-6.0); LDL Cholesterol, Calculated 69 mg/dL; Potassium 4.5 mmol/L (3.5-5.1); Protein, Total 6.5 g/dL (5.8-8.1); Sodium 142 mmol/L (136-145); Triglycerides 61 mg/dL (Less than 150)
[2016-08-04 12:11] LABS: Carbon Dioxide 25 mmol/L (23-31)
== END 2016-08-04 08:47 | disposition home or self-care (01) ==
LOC: HPCALD 08:46
PROVIDERS: ATTEND Family Medicine
DX: E78.5 Hyperlipidemia, unspecified (principal); E11.9 Type 2 diabetes mellitus without complications; I10 Essential (primary) hypertension
CPT/HCPCS: 36415; 80053; 80061; 83036; 85025

== ENCOUNTER 2016-09-09 13:26 | Emergency (ER) | payer MEDICARE ==
[2016-09-09 13:54] LABS: #Basophils 0.1 thou/uL (0.0-0.2); #Eosinphils 0.5 thou/uL (0.0-0.7); #Lymphocytes 2.2 thou/uL (1.20-3.40); #Monocytes 0.7 thou/uL (0.11-0.59); #Neutrophils 5.4 thou/uL (1.40-6.50); %Basophils 0.6 % (0.0-1.0); %Eosinophils 5.2 % (0.0-10.0); %Lymphocytes 25.4 % (21.0-51.0); %Monocytes 7.8 % (0.0-10.0); Hemoglobin 12.9 g/dL (14.0-18.0); Mean Corpuscular HGB CONC 35.2 g/dL (32.0-36.0); Mean Corpuscular Hemoglobin 30.1 pg (27.0-31.0); Mean Corpuscular Volume 85.5 fl (80.0-94.0); Mean Platelet Volume 6.2 fL (7.4-10.4); Platelet Count 198 thou/uL (130-400); RBC Distribution Width 12.6 % (11.5-14.5); Red Blood Cell (RBC) Count 4.27 mill/uL (4.70-6.10); White Blood Cell (WBC) Count 8.8 thou/uL (4.8-10.8)
[2016-09-09 14:00] LABS: INR-International Normal Ratio 1.1; PTT 25.5 SEC (22.9-36.1); Prothrombin Time 14.3 SEC (12.0-14.7)
[2016-09-09] MEDS ORDERED: Adenosine 6 MG/2 ML VIAL ONE (14:02)
[2016-09-09] MEDS ORDERED: Enoxaparin Sodium 100 MG/ML SYRINGE ONE (14:06)
[2016-09-09 14:11] LABS: Troponin I 0.012 ng/mL (< 0.028)
[2016-09-09 14:12] LABS: ALT (SGPT) 10 U/L (8-55); AST (SGOT) 14 U/L (5-34); Albumin 3.6 g/dL (3.4-4.8); Alkaline Phosphatase 78 U/L (40-150); Anion Gap 15 mmol/L (10-20); BUN (Urea Nitrogen) 36 mg/dL (8.4-25.7); Bilirubin, Total 0.5 mg/dL (0.2-1.2); Calc. Creatinine Clearance 0 mL/min (70-130); Calcium 8.8 mg/dL (7.8-10.44); Carbon Dioxide 22 mmol/L (23-31); Chloride 107 mmol/L (98-107); Estimated GFR-MDRD 34; Globulin 3.6 g/dL (2.4-3.5); Glucose 149 mg/dL (83-110); Potassium 4.2 mmol/L (3.5-5.1); Protein, Total 7.2 g/dL (5.8-8.1); Sodium 140 mmol/L (136-145)
--- NOTE | 2016-09-09 17:59 | RAD ---
PORTABLE CHEST 09/09/16 An AP portable film at 1345 is compared with a 05/05/16 study. The heart is mildly enlarged but approximately the same as before. There are no congestive changes o r large pleural effusions evident. No lobar infiltrates are seen. The trachea deviates some towards the right as it crosses the aortic arch. Median sternotomy sutures are seen from prior surgery. IMPRESSION: Cardiomegaly but no acute finding. POS: HOME
== END 2016-09-09 14:42 | disposition short-term general hospital (02) ==
LOC: BURERS 13:26
DX: I48.92 Unspecified atrial flutter (principal); I10 Essential (primary) hypertension; E78.00 Pure hypercholesterolemia, unspecified; K21.9 Gastro-esophageal reflux disease without esophagitis; I48.91 Unspecified atrial fibrillation; F32.9 Major depressive disorder, single episode, unspecified; Z79.899 Other long term (current) drug therapy; Z79.84 Long term (current) use of oral hypoglycemic drugs
CPT/HCPCS: 36415; 36416; 71010; 80053; 82553; 83605; 83880; 84443; 84484; 85025; 85610; 85730; 93005; 94760; 96365; 96372; 96375; 96376; J0153; J1650; J3490

== ENCOUNTER 2017-02-05 00:01 | Emergency (ER) | payer MEDICARE ==
[2017-02-05 00:40] LABS: #Basophils 0.1 thou/uL (0.0-0.2); #Eosinphils 0.3 thou/uL (0.0-0.7); #Lymphocytes 1.7 thou/uL (1.20-3.40); #Monocytes 0.6 thou/uL (0.11-0.59); #Neutrophils 4.7 thou/uL (1.40-6.50); %Basophils 0.9 % (0.0-1.0); %Eosinophils 4.3 % (0.0-10.0); %Lymphocytes 22.6 % (21.0-51.0); %Monocytes 8.2 % (0.0-10.0); %Neutrophils 64.1 % (42.0-75.0); Hemoglobin 12.1 g/dL (14.0-18.0); Mean Corpuscular HGB CONC 34.4 g/dL (32.0-36.0); Mean Corpuscular Hemoglobin 29.2 pg (27.0-31.0); Mean Corpuscular Volume 84.8 fl (80.0-94.0); Mean Platelet Volume 5.3 fL (7.4-10.4); Platelet Count 189 thou/uL (130-400); RBC Distribution Width 12.3 % (11.5-14.5); Red Blood Cell (RBC) Count 4.13 mill/uL (4.70-6.10); White Blood Cell (WBC) Count 7.4 thou/uL (4.8-10.8)
[2017-02-05 00:43] LABS: PTT 24.2 SEC (22.9-36.1); Prothrombin Time 13.3 SEC (12.0-14.7)
[2017-02-05 00:58] LABS: Bilirubin Negative (Negative); Blood, Urine Negative (Negative); Clarity Clear (Clear); Glucose, Urine (Dipstick) Negative (Negative); Leukocyte Trace (Negative); Nitrite Negative (Negative); Protein, Urine (Dipstick) Negative (Neg-Trace); Specific Gravity, Urine 1.015 (1.005-1.030); Urobilinogen 0.2 mg/dL (0.2-1.0)
[2017-02-05 01:01] LABS: Bacteria/HPF None Seen HPF (None Seen); RBC/HPF 0-3 HPF (0-3); Squamous Epithelial 0-3 HPF (0-3); WBC/HPF 0-3 HPF (0-3)
[2017-02-05 01:14] LABS: ALT (SGPT) 9 U/L (8-55); AST (SGOT) 14 U/L (5-34); Albumin 3.6 g/dL (3.4-4.8); Alkaline Phosphatase 84 U/L (40-150); Anion Gap 16 mmol/L (10-20); BUN (Urea Nitrogen) 34 mg/dL (8.4-25.7); Bilirubin, Total 0.3 mg/dL (0.2-1.2); Calc. Creatinine Clearance 0 mL/min (70-130); Calcium 9.1 mg/dL (7.8-10.44); Carbon Dioxide 21 mmol/L (23-31); Chloride 109 mmol/L (98-107); Estimated GFR-MDRD 33; Globulin 3.7 g/dL (2.4-3.5); Glucose 177 mg/dL (83-110); Potassium 4.5 mmol/L (3.5-5.1); Protein, Total 7.3 g/dL (5.8-8.1); Sodium 141 mmol/L (136-145)
[2017-02-05 01:38] LABS: CKMB 0.8 ng/mL (0-6.6); Troponin I Less than 0.010 ng/mL (< 0.028)
--- NOTE | 2017-02-05 07:58 | RAD ---
PORTABLE CHEST ONE VIEW: 02/05/2017 12:12 a.m. HISTORY: Chest pain. COMPARISON: 09/09/2016 FINDINGS: Changes of median sternotomy are again seen. The heart is enlarged. No focal areas of consolidation , pneumothoraces, tani pulmonary edema, or pleural effusions are seen. IMPRESSION: No acute process. POS: [facility]
== END 2017-02-05 01:50 | disposition home or self-care (01) ==
LOC: BURERS 00:01
DX: R00.2 Palpitations (principal); I10 Essential (primary) hypertension; I48.91 Unspecified atrial fibrillation; I25.10 Atherosclerotic heart disease of native coronary artery without angina pectoris; E11.9 Type 2 diabetes mellitus without complications; K21.9 Gastro-esophageal reflux disease without esophagitis; E78.00 Pure hypercholesterolemia, unspecified; Z79.899 Other long term (current) drug therapy
CPT/HCPCS: 71010; 80053; 81003; 81015; 82553; 84443; 84484; 85025; 85610; 85730; 93005; 94760

== ENCOUNTER 2017-06-08 18:33 | Emergency (ER) | payer MEDICARE ==
[2017-06-08] MEDS ORDERED: Adenosine 6 MG/2 ML VIAL ONE (18:49)
[2017-06-08 18:54] LABS: #Eosinphils 0.4 thou/uL (0.0-0.7); #Monocytes 0.7 thou/uL (0.11-0.59); #Neutrophils 4.6 thou/uL (1.40-6.50); %Basophils 0.6 % (0.0-1.0); %Eosinophils 5.5 % (0.0-10.0); %Lymphocytes 25.5 % (21.0-51.0); %Monocytes 9.2 % (0.0-10.0); %Neutrophils 59.3 % (42.0-75.0); Hemoglobin 12.4 g/dL (14.0-18.0); Mean Corpuscular HGB CONC 32.8 g/dL (32.0-36.0); Mean Corpuscular Volume 82.4 fl (80.0-94.0); Mean Platelet Volume 5.8 fL (7.4-10.4); Platelet Count 196 thou/uL (130-400); RBC Distribution Width 13.1 % (11.5-14.5); Red Blood Cell (RBC) Count 4.57 mill/uL (4.70-6.10); White Blood Cell (WBC) Count 7.8 thou/uL (4.8-10.8)
[2017-06-08 19:10] LABS: ALT (SGPT) 11 U/L (8-55); AST (SGOT) 16 U/L (5-34); Albumin 3.8 g/dL (3.4-4.8); Alkaline Phosphatase 78 U/L (40-150); Anion Gap 14 mmol/L (10-20); BUN (Urea Nitrogen) 31 mg/dL (8.4-25.7); Bilirubin, Total 0.6 mg/dL (0.2-1.2); Calc. Creatinine Clearance 0 mL/min (70-130); Calcium 9.2 mg/dL (7.8-10.44); Carbon Dioxide 22 mmol/L (23-31); Chloride 108 mmol/L (98-107); Estimated GFR-MDRD 35; Globulin 3.4 g/dL (2.4-3.5); Glucose 144 mg/dL (83-110); Potassium 4.4 mmol/L (3.5-5.1); Protein, Total 7.2 g/dL (5.8-8.1); Sodium 140 mmol/L (136-145)
[2017-06-08 19:12] LABS: CKMB 0.9 ng/mL (0-6.6); Troponin I Less than 0.010 ng/mL (< 0.028)
[2017-06-08] MEDS ORDERED: Labetalol HCl 100 MG/20 ML VIAL ONE (19:31)
--- NOTE | 2017-06-08 19:43 | RAD ---
PORTABLE UPRIGHT FRONTAL CHEST RADIOGRAPH 06/08/17 COMPARISON: 02/05/17 HISTORY: Hypertension and chest pain. FINDINGS: Increased linear interstitial density noted with pulmonary hyperinflation, stable. Stable prominence of the cardiac silhouette. Stable midline sternotomy wires. No acute findings. IMPRESSION: No acute findings - stable appearance of the chest. POS: [facility]
== END 2017-06-08 20:11 | disposition short-term general hospital (02) ==
LOC: BURERS 18:33
DX: I47.1 Supraventricular tachycardia (principal); I48.91 Unspecified atrial fibrillation; I10 Essential (primary) hypertension; K21.9 Gastro-esophageal reflux disease without esophagitis; E11.9 Type 2 diabetes mellitus without complications; E78.00 Pure hypercholesterolemia, unspecified; Z79.899 Other long term (current) drug therapy
CPT/HCPCS: 71045; 82553; 84484; 93005; 96361; 96374; 96375; J0153

== ENCOUNTER 2017-07-12 12:13 | Emergency (ER) | payer MEDICARE ==
[2017-07-12] MEDS ORDERED: Adenosine 6 MG/2 ML VIAL ONE ×2 (12:43→12:47)
[2017-07-12 12:48] LABS: #Basophils 0.1 thou/uL (0.0-0.2); #Eosinphils 0.3 thou/uL (0.0-0.7); #Lymphocytes 1.2 thou/uL (1.20-3.40); #Monocytes 0.7 thou/uL (0.11-0.59); #Neutrophils 7.1 thou/uL (1.40-6.50); %Basophils 0.8 % (0.0-1.0); %Eosinophils 3.5 % (0.0-10.0); %Lymphocytes 12.8 % (21.0-51.0); %Monocytes 7.4 % (0.0-10.0); %Neutrophils 75.5 % (42.0-75.0); Hemoglobin 12.6 g/dL (14.0-18.0); Mean Corpuscular HGB CONC 35.6 g/dL (32.0-36.0); Mean Corpuscular Hemoglobin 28.2 pg (27.0-31.0); Mean Corpuscular Volume 79.4 fl (80.0-94.0); Mean Platelet Volume 5.5 fL (7.4-10.4); Platelet Count 190 thou/uL (130-400); RBC Distribution Width 12.7 % (11.5-14.5); Red Blood Cell (RBC) Count 4.48 mill/uL (4.70-6.10); White Blood Cell (WBC) Count 9.5 thou/uL (4.8-10.8)
[2017-07-12 13:06] LABS: ALT (SGPT) 9 U/L (8-55); AST (SGOT) 15 U/L (5-34); Albumin 3.9 g/dL (3.4-4.8); Alkaline Phosphatase 84 U/L (40-150); Anion Gap 14 mmol/L (10-20); BUN (Urea Nitrogen) 37 mg/dL (8.4-25.7); Bilirubin, Total 0.7 mg/dL (0.2-1.2); Calc. Creatinine Clearance 0 mL/min (70-130); Calcium 9.2 mg/dL (7.8-10.44); Chloride 103 mmol/L (98-107); Estimated GFR-MDRD 31; Globulin 3.5 g/dL (2.4-3.5); Glucose 110 mg/dL (83-110); Magnesium 2.5 mg/dL (1.6-2.6); Potassium 4.8 mmol/L (3.5-5.1); Protein, Total 7.4 g/dL (5.8-8.1); Sodium 136 mmol/L (136-145)
[2017-07-12 13:07] LABS: CKMB 0.9 ng/mL (0-6.6); Troponin I Less than 0.010 ng/mL (< 0.028)
[2017-07-12] MEDS ORDERED: Metoprolol Tartrate 5 MG/5 ML VIAL ONE ×2 (13:12→13:30)
[2017-07-12 13:13] LABS: Carbon Dioxide 24 mmol/L (23-31)
== END 2017-07-12 13:58 | disposition home or self-care (01) ==
LOC: BURERS 12:13
DX: I48.91 Unspecified atrial fibrillation (principal); I25.10 Atherosclerotic heart disease of native coronary artery without angina pectoris; I10 Essential (primary) hypertension; E78.00 Pure hypercholesterolemia, unspecified; K21.9 Gastro-esophageal reflux disease without esophagitis; E11.9 Type 2 diabetes mellitus without complications; Z79.899 Other long term (current) drug therapy; Z79.84 Long term (current) use of oral hypoglycemic drugs
CPT/HCPCS: 80053; 82553; 83735; 83880; 84484; 85025; 93005; 96361; 96374; 96375; J0153

== ENCOUNTER 2017-07-18 12:16 | Emergency (ER) | payer MEDICARE ==
[2017-07-18] MEDS ORDERED: Diltiazem 125 MG/25 ML ONE (12:42)
[2017-07-18 12:59] LABS: INR-International Normal Ratio 1.1; PTT 26.8 SEC (22.9-36.1); Prothrombin Time 14.1 SEC (12.0-14.7)
[2017-07-18 13:04] LABS: Hemoglobin 12.2 g/dL (14.0-18.0); Mean Corpuscular HGB CONC 36.1 g/dL (32.0-36.0); Mean Corpuscular Hemoglobin 28.3 pg (27.0-31.0); Mean Corpuscular Volume 78.3 fL (80.0-94.0); RBC Distribution Width 12.5 % (11.5-14.5); Red Blood Cell (RBC) Count 4.33 mill/uL (4.70-6.10); White Blood Cell (WBC) Count 9.2 thou/uL (4.8-10.8)
[2017-07-18 13:05] LABS: #Eosinphils 0.4 thou/uL (0.0-0.7); #Monocytes 0.9 thou/uL (0.11-0.59); #Neutrophils 5.4 thou/uL (1.40-6.50); %Basophils 0.7 % (0.0-1.0); %Lymphocytes 26.9 % (21.0-51.0); %Monocytes 9.7 % (0.0-10.0); %Neutrophils 58.7 % (42.0-75.0); ALT (SGPT) 9 U/L (8-55); AST (SGOT) 13 U/L (5-34); Albumin 3.8 g/dL (3.4-4.8); Alkaline Phosphatase 79 U/L (40-150); Anion Gap 14 mmol/L (10-20); BUN (Urea Nitrogen) 34 mg/dL (8.4-25.7); Bilirubin, Total 0.7 mg/dL (0.2-1.2); CK (CPK) 39 U/L (30-200); Calc. Creatinine Clearance 0 mL/min (70-130); Calcium 8.8 mg/dL (7.8-10.44); Carbon Dioxide 22 mmol/L (23-31); Chloride 106 mmol/L (98-107); Estimated GFR-MDRD 32; Globulin 3.4 g/dL (2.4-3.5); Glucose 65 mg/dL (83-110); Manual Diff?? YES; Mean Platelet Volume 5.4 fL (7.4-10.4); Platelet Count 199 thou/uL (130-400); Potassium 4.5 mmol/L (3.5-5.1); Protein, Total 7.2 g/dL (5.8-8.1); Sodium 137 mmol/L (136-145)
[2017-07-18 13:06] LABS: #Basophils 0.1 thou/uL (0.0-0.2); MDiff Complete? YES
[2017-07-18 13:07] LABS: CKMB 0.9 ng/mL (0-6.6); Troponin I Less than 0.010 ng/mL (< 0.028)
--- NOTE | 2017-07-18 20:12 | RAD ---
AP PORTABLE CHEST: 07/18/2017 1225 HOURS COMPARISON: 09/09/2016 FINDINGS: The heart is mildly enlarged. The size is no different than before, and there are no congestive hdz ges or large pleural effusions. No lobar infiltrates are seen. The left hilum is marginally more prominent than it was before. It still may be all pulmonary artery , but the shape is just enough different that it may be worth considering an elective CT with contras t, if possible, to investigate it. Much would depend upon whether a CT, even if it showed anything, would truly alter the course of treatment in a patient of this age. IMPRESSION: 1. Mild cardiomegaly but no congestive change. 2. Slight prominence of the left hilum compared to prior studies. Consider whether an elective CT t o investigate it further would be helpful or not. CODE T POS: [facility]
== END 2017-07-18 14:58 | disposition short-term general hospital (02) ==
LOC: BURERS 12:16
DX: R55 Syncope and collapse (principal); I48.92 Unspecified atrial flutter; I25.10 Atherosclerotic heart disease of native coronary artery without angina pectoris; I10 Essential (primary) hypertension; I48.91 Unspecified atrial fibrillation; K21.9 Gastro-esophageal reflux disease without esophagitis; E11.9 Type 2 diabetes mellitus without complications; Z85.528 Personal history of other malignant neoplasm of kidney; Z85.51 Personal history of malignant neoplasm of bladder; Z79.84 Long term (current) use of oral hypoglycemic drugs; Z79.899 Other long term (current) drug therapy
CPT/HCPCS: 71045; 80053; 82553; 83880; 84484; 85025; 85610; 85730; 93005; 94760; 96361; 96374

== ENCOUNTER 2017-07-21 21:22 | Emergency (ER) | payer MEDICARE ==
[2017-07-21 22:03] LABS: #Basophils 0.1 thou/uL (0.0-0.2); #Eosinphils 0.3 thou/uL (0.0-0.7); #Lymphocytes 1.5 thou/uL (1.20-3.40); #Monocytes 0.6 thou/uL (0.11-0.59); #Neutrophils 4.5 thou/uL (1.40-6.50); %Basophils 0.7 % (0.0-1.0); %Eosinophils 4.8 % (0.0-10.0); %Lymphocytes 21.7 % (21.0-51.0); %Monocytes 8.7 % (0.0-10.0); %Neutrophils 64.1 % (42.0-75.0); Hemoglobin 11.5 g/dL (14.0-18.0); Mean Corpuscular HGB CONC 35.8 g/dL (32.0-36.0); Mean Corpuscular Hemoglobin 28.1 pg (27.0-31.0); Mean Corpuscular Volume 78.4 fl (80.0-94.0); Mean Platelet Volume 5.5 fL (7.4-10.4); Platelet Count 184 thou/uL (130-400); RBC Distribution Width 12.5 % (11.5-14.5)
[2017-07-21 22:13] LABS: INR-International Normal Ratio 1.2; PTT 27.9 SEC (22.9-36.1)
[2017-07-21 22:19] LABS: ALT (SGPT) 8 U/L (8-55); AST (SGOT) 13 U/L (5-34); Albumin 3.6 g/dL (3.4-4.8); Alkaline Phosphatase 72 U/L (40-150); Anion Gap 11 mmol/L (10-20); BUN (Urea Nitrogen) 30 mg/dL (8.4-25.7); Bilirubin, Total 0.6 mg/dL (0.2-1.2); Calc. Creatinine Clearance 0 mL/min (70-130); Calcium 8.5 mg/dL (7.8-10.44); Carbon Dioxide 24 mmol/L (23-31); Chloride 108 mmol/L (98-107); Estimated GFR-MDRD 28; Globulin 3.1 g/dL (2.4-3.5); Glucose 197 mg/dL (83-110); Potassium 4.5 mmol/L (3.5-5.1); Protein, Total 6.7 g/dL (5.8-8.1); Sodium 138 mmol/L (136-145)
[2017-07-21 22:21] LABS: CKMB 0.8 ng/mL (0-6.6); Troponin I Less than 0.010 ng/mL (< 0.028)
--- NOTE | 2017-07-21 22:47 | RAD ---
PORTABLE CHEST: 07/21/17 An AP portable film at 2135 is compared with the 07/18/17 study. Mild cardiomegaly is present as usual. There are no congestive changes, pleural effusions, or focal pulmonary infiltrates. There has been no adverse interval change since the last exam. It was mentione d on the prior exam that the left hilum is a bit more rounded. Today, the patient is turned to the si de obscuring the hilum, so I cannot comment on it one way or the other. IMPRESSION: Mild cardiomegaly without congestive change. Left hilum not sufficiently seen to comment upon. Code T POS: [facility]
== END 2017-07-21 22:45 | disposition home or self-care (01) ==
LOC: BURERS 21:22
DX: I48.91 Unspecified atrial fibrillation (principal); D63.1 Anemia in chronic kidney disease; I13.2 Hypertensive heart and chronic kidney disease with heart failure and with stage 5 chronic kidney disease, or end stage renal disease; I50.9 Heart failure, unspecified; N18.9 Chronic kidney disease, unspecified; K21.9 Gastro-esophageal reflux disease without esophagitis; E11.9 Type 2 diabetes mellitus without complications; E78.00 Pure hypercholesterolemia, unspecified; Z79.899 Other long term (current) drug therapy
CPT/HCPCS: 71045; 80053; 82553; 83880; 84484; 85025; 85610; 85730; 93005; 94760; 96374

== ENCOUNTER 2017-08-11 17:59 | Emergency (ER) | payer MEDICARE ==
--- NOTE | 2017-08-11 18:46 | RAD ---
PORTABLE CHEST: 08/11/17 HISTORY: Chest pain. COMPARISON: 07/21/17. Lungs appear clear. Heart size is upper normal with postop sternotomy change. Vascular markings david l. No interval change. IMPRESSION: No acute findings. POS: [facility]
[2017-08-11 18:48] LABS: #Basophils 0.1 thou/uL (0.0-0.2); #Eosinphils 0.3 thou/uL (0.0-0.7); #Lymphocytes 1.9 thou/uL (1.20-3.40); #Monocytes 0.7 thou/uL (0.11-0.59); #Neutrophils 4.8 thou/uL (1.40-6.50); %Basophils 0.8 % (0.0-1.0); %Eosinophils 3.7 % (0.0-10.0); %Lymphocytes 24.5 % (21.0-51.0); %Monocytes 8.8 % (0.0-10.0); %Neutrophils 62.2 % (42.0-75.0); Mean Corpuscular HGB CONC 35.2 g/dL (32.0-36.0); Mean Corpuscular Hemoglobin 27.4 pg (27.0-31.0); Mean Corpuscular Volume 77.8 fL (78.0-98.0); Mean Platelet Volume 5.5 fL (7.4-10.4); Platelet Count 189 thou/uL (130-400); RBC Distribution Width 12.4 % (11.5-14.5); Red Blood Cell (RBC) Count 4.37 mill/uL (4.70-6.10); White Blood Cell (WBC) Count 7.8 thou/uL (4.8-10.8)
[2017-08-11] MEDS ORDERED: Diltiazem 125 MG/25 ML ONE (19:00)
[2017-08-11 19:05] LABS: ALT (SGPT) 11 U/L (8-55); AST (SGOT) 15 U/L (5-34); Albumin 3.6 g/dL (3.4-4.8); Alkaline Phosphatase 83 U/L (40-150); Anion Gap 14 mmol/L (10-20); BUN (Urea Nitrogen) 24 mg/dL (8.4-25.7); Bilirubin, Total 0.5 mg/dL (0.2-1.2); Calc. Creatinine Clearance 0 mL/min (70-130); Calcium 8.6 mg/dL (7.8-10.44); Carbon Dioxide 19 mmol/L (23-31); Chloride 109 mmol/L (98-107); Estimated GFR-MDRD 38; Globulin 3.4 g/dL (2.4-3.5); Glucose 188 mg/dL (83-110); Potassium 4.3 mmol/L (3.5-5.1); Sodium 138 mmol/L (136-145)
[2017-08-11 19:08] LABS: CKMB 0.7 ng/mL (0-6.6); Troponin I Less than 0.010 ng/mL (< 0.028)
== END 2017-08-11 20:02 | disposition short-term general hospital (02) ==
LOC: BURERS 17:59
DX: I48.91 Unspecified atrial fibrillation (principal); D64.9 Anemia, unspecified; I11.0 Hypertensive heart disease with heart failure; I50.9 Heart failure, unspecified; I25.10 Atherosclerotic heart disease of native coronary artery without angina pectoris; E11.9 Type 2 diabetes mellitus without complications; K21.9 Gastro-esophageal reflux disease without esophagitis; Z79.899 Other long term (current) drug therapy
CPT/HCPCS: 71045; 80053; 82553; 83880; 84484; 85025; 93005; 94760; 96365

== ENCOUNTER 2017-08-15 08:20 | Emergency (ER) | payer MEDICARE ==
[2017-08-15 09:07] LABS: #Basophils 0.1 thou/uL (0.0-0.2); #Eosinphils 0.3 thou/uL (0.0-0.7); #Lymphocytes 1.2 thou/uL (1.20-3.40); #Monocytes 0.6 thou/uL (0.11-0.59); #Neutrophils 5.6 thou/uL (1.40-6.50); %Basophils 0.7 % (0.0-1.0); %Eosinophils 3.6 % (0.0-10.0); %Monocytes 7.3 % (0.0-10.0); %Neutrophils 72.5 % (42.0-75.0); Hemoglobin 12.5 g/dL (14.0-18.0); Mean Corpuscular HGB CONC 34.8 g/dL (32.0-36.0); Mean Corpuscular Hemoglobin 27.2 pg (27.0-31.0); Mean Corpuscular Volume 78.2 fL (78.0-98.0); Mean Platelet Volume 5.5 fL (7.4-10.4); Platelet Count 199 thou/uL (130-400); RBC Distribution Width 12.4 % (11.5-14.5); Red Blood Cell (RBC) Count 4.58 mill/uL (4.70-6.10); White Blood Cell (WBC) Count 7.7 thou/uL (4.8-10.8)
[2017-08-15] MEDS ORDERED: Ondansetron HCl/PF 4 MG/2 ML Vial ONE (09:08)
[2017-08-15 09:23] LABS: ALT (SGPT) 8 U/L (8-55); AST (SGOT) 13 U/L (5-34); Albumin 3.4 g/dL (3.4-4.8); Alkaline Phosphatase 84 U/L (40-150); Anion Gap 14 mmol/L (10-20); BUN (Urea Nitrogen) 37 mg/dL (8.4-25.7); Bilirubin, Total 0.6 mg/dL (0.2-1.2); CK (CPK) 35 U/L (30-200); Calc. Creatinine Clearance 0 mL/min (70-130); Calcium 8.5 mg/dL (7.8-10.44); Carbon Dioxide 24 mmol/L (23-31); Chloride 101 mmol/L (98-107); Estimated GFR-MDRD 27; Globulin 3.3 g/dL (2.4-3.5); Glucose 307 mg/dL (83-110); Lipase 15 U/L (8-78); Magnesium 2.1 mg/dL (1.6-2.6); Potassium 4.6 mmol/L (3.5-5.1); Protein, Total 6.7 g/dL (5.8-8.1); Sodium 134 mmol/L (136-145)
[2017-08-15 09:24] LABS: CKMB 0.8 ng/mL (0-6.6); Troponin I Less than 0.010 ng/mL (< 0.028)
[2017-08-15 09:30] LABS: INR-International Normal Ratio 1.3; PTT 29.6 SEC (22.9-36.1); Prothrombin Time 16.5 SEC (12.0-14.7)
[2017-08-15 09:44] LABS: D-Dimer Test 0.44 *mcg/mL (0.27-0.43)
[2017-08-15] MEDS ORDERED: Promethazine 25 MG TAB ONE (09:53)
== END 2017-08-15 10:15 | disposition home or self-care (01) ==
LOC: BURERS 08:20
DX: R11.2 Nausea with vomiting, unspecified (principal); I25.10 Atherosclerotic heart disease of native coronary artery without angina pectoris; I10 Essential (primary) hypertension; I48.91 Unspecified atrial fibrillation; E78.00 Pure hypercholesterolemia, unspecified; K21.9 Gastro-esophageal reflux disease without esophagitis; E11.9 Type 2 diabetes mellitus without complications; Z79.899 Other long term (current) drug therapy
CPT/HCPCS: 80053; 82550; 82553; 83690; 83735; 84484; 85025; 85379; 85610; 85730; 93005; 96361; 96374; J2405

== ENCOUNTER 2017-10-01 15:35 | Emergency (ER) | payer MEDICARE ==
[2017-10-01 16:53] LABS: ALT (SGPT) 10 U/L (8-55); AST (SGOT) 16 U/L (5-34); Albumin 3.7 g/dL (3.4-4.8); Alkaline Phosphatase 76 U/L (40-150); Anion Gap 13 mmol/L (10-20); BUN (Urea Nitrogen) 28 mg/dL (8.4-25.7); Bilirubin, Total 0.8 mg/dL (0.2-1.2); Calc. Creatinine Clearance 0 mL/min (70-130); Carbon Dioxide 22 mmol/L (23-31); Chloride 104 mmol/L (98-107); Estimated GFR-MDRD 42; Globulin 3.3 g/dL (2.4-3.5); Glucose 127 mg/dL (83-110); Potassium 4.4 mmol/L (3.5-5.1); Sodium 135 mmol/L (136-145)
[2017-10-01 16:54] LABS: CKMB 0.8 ng/mL (0-6.6); Troponin I Less than 0.010 ng/mL (< 0.028)
[2017-10-01 16:58] LABS: Eosinophils 5 % (0-10); Hemoglobin 11.9 g/dL (14.0-18.0); Lymphocytes 35 % (21-51); MDiff Complete? YES; Mean Corpuscular HGB CONC 37.2 g/dL (32.0-36.0); Mean Corpuscular Hemoglobin 27.4 pg (27.0-31.0); Mean Corpuscular Volume 73.7 fL (78.0-98.0); Mean Platelet Volume 5.4 fL (7.4-10.4); Microcytosis SLIGHT = 6-15 cells (100X) (0-5/hpf); Monocytes 6 % (0-10); Neutrophil 54 % (42-75); Platelet Count 195 thou/uL (130-400); RBC Distribution Width 11.7 % (11.5-14.5); Red Blood Cell (RBC) Count 4.35 mill/uL (4.70-6.10); White Blood Cell (WBC) Count 7.4 thou/uL (4.8-10.8)
--- NOTE | 2017-10-01 18:09 | RAD ---
PORTABLE CHEST 10/01/17 An AP portable film at 1551 is compared with a 08/12/15 study. Mild to moderate cardiomegaly is the same as before. There are no congestive changes or pleural effus ions. The lungs are clear. It is difficult to see in the medial lung bases well. IMPRESSION: Cardiomegaly but no change since the prior study. POS: [facility]
== END 2017-10-01 17:45 | disposition home or self-care (01) ==
LOC: BURERS 15:35
DX: I11.0 Hypertensive heart disease with heart failure (principal); I50.9 Heart failure, unspecified; I48.92 Unspecified atrial flutter; I48.91 Unspecified atrial fibrillation; K21.9 Gastro-esophageal reflux disease without esophagitis; E11.9 Type 2 diabetes mellitus without complications; I25.10 Atherosclerotic heart disease of native coronary artery without angina pectoris; Z79.84 Long term (current) use of oral hypoglycemic drugs; Z79.899 Other long term (current) drug therapy
CPT/HCPCS: 71045; 80053; 82553; 83880; 84484; 85025; 93005; 94760

== ENCOUNTER 2017-10-29 21:30 | Emergency (ER) | payer MEDICARE | END 2017-10-29 22:20 | disposition home or self-care (01) | LOC: BURERS 21:30 | DX: B02.9 Zoster without complications (principal); I25.10 Atherosclerotic heart disease of native coronary artery without angina pectoris; I10 Essential (primary) hypertension; I48.91 Unspecified atrial fibrillation; E78.00 Pure hypercholesterolemia, unspecified; E11.9 Type 2 diabetes mellitus without complications; K21.9 Gastro-esophageal reflux disease without esophagitis; Z79.899 Other long term (current) drug therapy | CPT/HCPCS: 99282 ==

== ENCOUNTER 2017-11-10 08:31 | Outpatient (CLI) | payer MEDICARE ==
--- NOTE | 2017-11-10 10:55 | RAD ---
CHEST TWO VIEWS: Date: 11-10-17 FINDINGS: There appears to be some infiltrate and fluid in the right lower lobe. The diaphragm appears slightly elevated, but this may be falsely caused by the fluid present. The left lung is relatively clear. Th ere is no congestive change. The heart size is stable. IMPRESSION: Suggestion of fluid and infiltrate in the right lower lobe. Code T POS: HOME
== END 2017-11-10 08:32 | disposition home or self-care (01) ==
LOC: BURRAD 08:31
PROVIDERS: ATTEND Family Medicine
DX: R05 Cough (principal)
CPT/HCPCS: 71046

== ENCOUNTER 2017-12-16 11:35 | Emergency (ER) | payer MEDICARE ==
--- NOTE | 2017-12-16 14:55 | RAD ---
RIGHT ELBOW 2 VIEWS: Date: 12/16/17 FINDINGS: No fracture was noted. The anterior fat pad of the elbow is a bit prominent, but not the posterior. I cannot exclude a small amount of joint effusion. There is some minor bony spurring on the coronoid p rocess. IMPRESSION: At most, small joint effusion. POS: HOME
== END 2017-12-16 12:25 ==
LOC: BURERS 11:35
DX: S51.811A Laceration without foreign body of right forearm, initial encounter (principal); I13.0 Hypertensive heart and chronic kidney disease with heart failure and stage 1 through stage 4 chronic kidney disease, or unspecified chronic kidney disease; I50.9 Heart failure, unspecified; N18.3 Chronic kidney disease, stage 3 (moderate); E11.22 Type 2 diabetes mellitus with diabetic chronic kidney disease; I48.91 Unspecified atrial fibrillation; K21.9 Gastro-esophageal reflux disease without esophagitis; E78.1 Pure hyperglyceridemia; M06.9 Rheumatoid arthritis, unspecified; J44.9 Chronic obstructive pulmonary disease, unspecified; D50.9 Iron deficiency anemia, unspecified; W19.XXXA Unspecified fall, initial encounter; Y92.129 Unspecified place in nursing home as the place of occurrence of the external cause
CPT/HCPCS: 12004